=== PATIENT | male | born 1940 | race Hispanic/Latino ===

== ENCOUNTER 2021-07-20 21:30 | Inpatient (IN) | payer MEDICARE ==
[~2021-07-20] VITALS: Ht 180.3 cm; Wt 84.8 kg
[2021-07-20] MEDS ORDERED: ATROPINE 1MG SYG IVP ONE (22:12)
[2021-07-20 22:18] LABS: APPEARANCE,URINE Clear (CLEAR); BILIRUBIN,URINE Negative (NEGATIVE); COLOR,URINE Yellow (YELLOW); GLUCOSE, URINE (UA) >=1000 mg/dL (NEGATIVE); KETONES,URINE Negative (NEGATIVE); LEUKOCYTE ESTERASE ,URINE Negative (NEGATIVE); NITRATE,URINE Negative (NEGATIVE); OCCULT BLOOD,URINE Negative (NEGATIVE); PH,URINE 5.5 (5.0-8.0); PROTEIN,URINE Negative (NEGATIVE)
[2021-07-20] MEDS ORDERED: ENOXAPARIN SODIUM 1 MG/KG SQ SCH (22:30)
[2021-07-20] MEDS ORDERED: ATROPINE 1MG SYG IVP SCH (22:30)
[2021-07-20] MEDS ORDERED: ASPIRIN 325MG TAB PO ONE (22:30)
[2021-07-20] MEDS ORDERED: ONDANSETRON 4MG INJ IVP ONE (22:30)
[2021-07-20 22:33] LABS: BASOPHILS % (AUTO) 0.7 % (0.0-5.0); EOSINOPHILS % (AUTO) 1.5 % (0.0-8.0); HEMATOCRIT 38.7 % (42-54); LYMPHOCYTES % (AUTO) 23.3 % (21.0-51.0); MEAN CORPUSCULAR HEMOGLOBIN 33.2 pg (27.0-33.0); MEAN CORPUSCULAR HGB CONC 33.6 g/dL (32.0-36.0); MEAN CORPUSCULAR VOLUME 98.7 fL (79-99); NEUTROPHILS % (AUTO) 64.2 % (40.0-77.0); PLATELET COUNT (AUTO) 207 K/uL (130-400); RED BLOOD CELL COUNT(AUTO) 3.92 MIL/uL (4.50-6.20); RED CELL DISTRIBUTION WIDTH 13.4 % (11.0-15.5); WHITE BLOOD COUNT (AUTO) 8.6 K/uL (4.8-10.8)
[2021-07-20 22:44] LABS: CARBON DIOXIDE 29 mmol/L (21-32); CHLORIDE 102 mmol/L (101-111); CREATININE 1.9 mg/dL (0.5-1.5); GLOMERULAR FILTR. RATE CALC 36 mL/min (>60); GLUCOSE,RANDOM 203 mg/dL (70-105); POTASSIUM 4.2 mmol/L (3.5-5.1); SODIUM SERUM 141 mmol/L (136-145); UREA NITROGEN, BLOOD 31 mg/dL (7-18)
[2021-07-20 22:49] LABS: ALANINE AMINOTRANSFERASE 27 U/L (12-78); ALBUMIN 4.2 g/dL (3.5-5.0); ASPARTATE AMINOTRANSFERASE 15 U/L (10-37); BILIRUBIN,TOTAL 0.3 mg/dL (0.2-1.0); TOTAL PROTEIN, SERUM 7.1 g/dL (6.0-8.3)
[2021-07-20 22:50] LABS: CRP QUANTITATIVE < 2.00 mg/L (0.00-9.0)
[2021-07-20 22:55] LABS: BACTERIA,URINE None Seen /HPF (None Seen); RBC,URINE None Seen /HPF (0-1); SQUAMOUS EPITHELIAL CELL,UR Rare /HPF (0-2); WBC,URINE None Seen /HPF (0-1); YEAST,URINE BUDDING None Seen /HPF (None Seen)
[2021-07-20 22:55] LABS: B-TYPE NATRIURETIC PEPTIDE 175 pg/mL (0-100)
[2021-07-20] MEDS ORDERED: ONDANSETRON 4MG INJ ONE (23:04)
[2021-07-20] MEDS ORDERED: ASPIRIN 325MG TAB ONE (23:05)
[2021-07-20] MEDS ORDERED: 0.9%NACL 1000ML 1,000 ML IV SCH (23:30)
[2021-07-20] MEDS ORDERED: ONDANSETRON 4MG INJ IV PRN (23:30)
[2021-07-20] MEDS ORDERED: 0.9%NACL 1000ML 500 ML IV SCH (23:30)
[2021-07-20] MEDS ORDERED: ENOXAPARIN SODIUM 80 MG/0.8 ML SQ ONE (23:30)
[2021-07-20] MEDS ORDERED: HYDRALAZINE 20MG/ML VIAL IV PRN (23:30)
[2021-07-21 00:48] VITALS: BP 167/79
[2021-07-21] MEDS ORDERED: ENOXAPARIN SODIUM 40 MG/0.4 ML SYRINGE SQ SCH (09:00)
[2021-07-21] MEDS ORDERED: FAMOTIDINE 20MG TAB PO SCH (09:00)
[2021-08-14] MEDS ORDERED: EMPA25TA PO (11:53)
[2021-08-14] MEDS ORDERED: ASPI-1197 PO (11:53)
[2021-08-14] MEDS ORDERED: ATOR20TA65 PO (11:53)
[2021-08-14] MEDS ORDERED: PIOG15TA66 PO (11:53)
[2021-08-14] MEDS ORDERED: BRIM5DRO OP (11:53)
[2021-08-14] MEDS ORDERED: LOSA100T58 PO (11:53)
== END 2021-07-21 00:30 | disposition left against medical advice (07) | DRG 605 ==
LOC: EDH 21:30 → EDHIP 23:07
PROVIDERS: ADMIT Internal Medicine; ATTEND Internal Medicine
DX: S80.211A Abrasion, right knee, initial encounter (principal); I10 Essential (primary) hypertension; S80.212A Abrasion, left knee, initial encounter; E11.9 Type 2 diabetes mellitus without complications; E78.5 Hyperlipidemia, unspecified; R29.6 Repeated falls; Y93.89 Activity, other specified; Y92.89 Other specified places as the place of occurrence of the external cause; Y99.8 Other external cause status; Z98.49 Cataract extraction status, unspecified eye; Z85.46 Personal history of malignant neoplasm of prostate
CPT/HCPCS: 36415; 71045; 80053; 81001; 83880; 84484; 85025; 86140; 93005; G0378; J0461; J2405

== ENCOUNTER 2021-08-15 06:01 | Day surgery (SDC) | payer MEDICARE ==
[2021-08-10 16:16] LABS: EOSINOPHILS % (AUTO) 3.2 % (0.0-8.0); HEMATOCRIT 39.3 % (42-54); LYMPHOCYTES % (AUTO) 28.1 % (21.0-51.0); MEAN CORPUSCULAR HGB CONC 33.1 g/dL (32.0-36.0); MEAN CORPUSCULAR VOLUME 99.7 fL (79-99); NEUTROPHILS % (AUTO) 57.5 % (40.0-77.0); PLATELET COUNT (AUTO) 223 K/uL (130-400); RED BLOOD CELL COUNT(AUTO) 3.94 MIL/uL (4.50-6.20); RED CELL DISTRIBUTION WIDTH 12.7 % (11.0-15.5)
[2021-08-10 16:35] LABS: CREATININE 1.5 mg/dL (0.5-1.5)
[2021-08-10 16:38] LABS: INR 1.05 (0.85-1.15); PROTHROMBIN TIME 11.4 SEC (9.6-11.6)
[2021-08-10 16:39] LABS: PARTIAL THROMBOPLASTIN TIME 28.8 SEC (26.3-35.5)
[2021-08-14 10:28] VITALS: BP 198/69
[2021-08-15] VITALS (13 sets, daily range): BP systolic 103–170; BP diastolic 50–81
[~2021-08-15] VITALS: Ht 180.3 cm; Wt 83.5 kg
[~2021-08-15 06:01] MED LIST: ASPI-1197 PO; ATOR20TA65 PO; BRIM5DRO OP; EMPA25TA PO; LOSA100T58 PO; PIOG15TA66 PO
[2021-08-15] MEDS ORDERED: 0.9%NACL 1000ML 1,000 ML IV ONE (07:07)
[2021-08-15] MEDS ORDERED: CEFAZOLIN SODIUM 1 GM VIAL ONE ×2 (07:12→14:06)
[2021-08-15] MEDS ORDERED: BUPIVACAINE/PF 0.25% 30ML VIAL IJ ONE (07:12)
[2021-08-15] MEDS ORDERED: IOHEXOL-350 50ML VIAL IV ONE (07:13)
[2021-08-15] MEDS ORDERED: LIDOCAINE HCL 1% MDV 50ML VIAL ONE (07:14)
[2021-08-15] MEDS ORDERED: MEPERIDINE-PF 25 MG/ML SYG ONE ×2 (07:14→07:34)
[2021-08-15] MEDS ORDERED: MIDAZOLAM HCL 1 MG/ML 2ML VIAL ONE ×2 (07:14→07:34)
[2021-08-15] MEDS ORDERED: VITAD50000 PO (07:50)
== END 2021-08-15 16:20 | disposition home or self-care (01) ==
LOC: DAH 06:01
PROVIDERS: ATTEND Internal Medicine Cardiovascular Disease
DX: I49.5 Sick sinus syndrome (principal); Z20.822 Contact with and (suspected) exposure to COVID-19; I44.2 Atrioventricular block, complete; I10 Essential (primary) hypertension; E11.9 Type 2 diabetes mellitus without complications; I44.0 Atrioventricular block, first degree; I45.2 Bifascicular block; Z80.42 Family history of malignant neoplasm of prostate; Z85.46 Personal history of malignant neoplasm of prostate; Z92.3 Personal history of irradiation; Z79.899 Other long term (current) drug therapy; Z79.01 Long term (current) use of anticoagulants
CPT/HCPCS: 33208; 36415; 71045; 80048; 82948 ×2; 85025; 85610; 85730; 93005; A4215 ×2; A4216 ×2; A4221 ×2; A4222; A4223 ×4; A4606; A4663; C1785; C1894; C1898 ×2; J0690 ×2; J2175; J2250; J3490 ×2; J7030; 96365; 96366; 96374; 99156; 99157; Q9967

== ENCOUNTER → 2022-03-22 | Outpatient (CLI) | payer MEDICARE ==
[~2022-03-22] MED LIST changes: +VITAD50000 PO
== END | disposition home or self-care (01) ==
LOC: SHCH 08:17
PROVIDERS: ATTEND Internal Medicine Cardiovascular Disease
DX: I35.8 Other nonrheumatic aortic valve disorders (principal); R94.31 Abnormal electrocardiogram [ECG] [EKG]; R00.1 Bradycardia, unspecified; I10 Essential (primary) hypertension
CPT/HCPCS: 93306

== ENCOUNTER 2022-06-05 04:49 | Emergency (ER) | payer MEDICARE ==
[2022-06-05] MEDS ORDERED: ACETAMINOPHEN 325 MG SUPPOSITORY RC ONE (05:00)
[2022-06-05 05:30] LABS: CREATININE 1.5 mg/dL (0.5-1.5)
[2022-06-05] MEDS ORDERED: ACETAMINOPHEN 650 MG SUPPOSITORY RC ONE (05:30)
[2022-06-05 05:35] LABS: ALBUMIN 3.3 g/dL (3.5-5.0); TOTAL PROTEIN, SERUM 6.3 g/dL (6.0-8.3)
[2022-06-05 05:38] LABS: APPEARANCE,URINE CLEAR (CLEAR); BILIRUBIN,URINE NEGATIVE (NEGATIVE); COLOR,URINE YELLOW (YELLOW); GLUCOSE, URINE (UA) >=1000 mg/dL (NEGATIVE); KETONES,URINE NEGATIVE (NEGATIVE); LEUKOCYTE ESTERASE ,URINE TRACE (NEGATIVE); NITRATE,URINE POSITIVE (NEGATIVE); OCCULT BLOOD,URINE SMALL (NEGATIVE); PH,URINE 5.5 (5.0-8.0); PROTEIN,URINE NEGATIVE (NEGATIVE); UROBILINOGEN,URINE 0.2 mg/dL (0.2-1.0)
[2022-06-05 05:39] LABS: BASOPHILS % (AUTO) 0.4 % (0.0-5.0); EOSINOPHILS % (AUTO) 0.7 % (0.0-8.0); HEMATOCRIT 34.9 % (42-54); LYMPHOCYTES % (AUTO) 4.2 % (21.0-51.0); MEAN CORPUSCULAR HEMOGLOBIN 31.7 pg (27.0-33.0); MEAN CORPUSCULAR HGB CONC 33.5 g/dL (32.0-36.0); MEAN CORPUSCULAR VOLUME 94.6 fL (79-99); MONOCYTES % (AUTO) 4.6 % (3.0-13.0); NEUTROPHILS % (AUTO) 89.7 % (40.0-77.0); PLATELET COUNT (AUTO) 169 K/uL (130-400); RED BLOOD CELL COUNT(AUTO) 3.69 MIL/uL (4.50-6.20); RED CELL DISTRIBUTION WIDTH 13.2 % (11.0-15.5); WHITE BLOOD COUNT (AUTO) 7.4 K/uL (4.8-10.8)
[2022-06-05] MEDS ORDERED: CEFTRIAXONE 1G VIAL ONE (05:55)
[2022-06-05 05:58] LABS: BACTERIA,URINE Many /HPF (None Seen); RBC,URINE 0-1 /HPF (0-1); SQUAMOUS EPITHELIAL CELL,UR Rare /HPF (0-2)
[2022-06-05] MEDS ORDERED: CEFTRIAXONE 1G VIAL IVP ONE (06:00)
[2022-06-05] MEDS ORDERED: KCL 20 MEQ ERTAB PO ONE ×2 (06:21→06:30)
[2022-06-05 06:32] VITALS: BP 116/57
[2022-06-05] MEDS ORDERED: CEPH500B PO (06:50)
== END 2022-06-05 07:05 | disposition home or self-care (01) ==
LOC: EDH 04:49
DX: N39.0 Urinary tract infection, site not specified (principal); E87.6 Hypokalemia; E11.9 Type 2 diabetes mellitus without complications; I11.9 Hypertensive heart disease without heart failure; Z85.46 Personal history of malignant neoplasm of prostate; Z20.822 Contact with and (suspected) exposure to COVID-19
CPT/HCPCS: 99285; 96374; 71045; 87426; 84484; 80053; 85025; 87040 ×2; 87077; 87088; 87186; 87804 ×2; 83605; 81001; 36415; 93005; J0696

== ENCOUNTER → 2025-01-19 | Outpatient (CLI) | payer MEDICARE ==
[~2025-01-19] MED LIST changes: +CEPH500B PO; -LOSA100T58 PO; +LOSA100T59 PO
== END | disposition home or self-care (01) ==
LOC: SHCH 13:59
PROVIDERS: ATTEND Internal Medicine Cardiovascular Disease
DX: I08.3 Combined rheumatic disorders of mitral, aortic and tricuspid valves (principal); I11.9 Hypertensive heart disease without heart failure
CPT/HCPCS: 93306

== ENCOUNTER 2025-03-16 09:22 | Inpatient (IN) | payer MEDICARE ==
[~2025-03-16] VITALS: Ht 182.9 cm; Wt 82.2 kg
[2025-03-16] MEDS: 0.9%NACL 1000ML 1,000 ML IV ONE (09:35)
[2025-03-16 09:51] LABS: BASOPHILS # (AUTO) 0.05 K/uL (0.00-0.20); BASOPHILS % (AUTO) 0.6 % (0.0-5.0); EOSINOPHILS # (AUTO) 0.04 K/uL (0.00-0.70); EOSINOPHILS % (AUTO) 0.5 % (0.0-8.0); HEMATOCRIT 32.2 % (42-54); IMMATURE GRANULOCYTE ABSOLUTE 0.02 K/uL (0-1); LYMPHOCYTES # (AUTO) 0.7 K/uL (1.0-4.8); LYMPHOCYTES % (AUTO) 8.1 % (21.0-51.0); MEAN CORPUSCULAR HEMOGLOBIN 32.6 pg (27.0-33.0); MEAN CORPUSCULAR HGB CONC 32.9 g/dL (32.0-36.0); MEAN CORPUSCULAR VOLUME 99.1 fL (79-99); MONOCYTES # (AUTO) 0.9 K/uL (0.1-1.0); MONOCYTES % (AUTO) 10.5 % (3.0-13.0); NEUTROPHILS # (AUTO) 6.7 K/uL (1.8-7.7); NEUTROPHILS % (AUTO) 80.1 % (40.0-77.0); PLATELET COUNT (AUTO) 165 K/uL (130-400); RED BLOOD CELL COUNT(AUTO) 3.25 MIL/uL (4.50-6.20); RED CELL DISTRIBUTION WIDTH 14.3 % (11.0-15.5); WHITE BLOOD COUNT (AUTO) 8.3 K/uL (4.8-10.8)
--- NOTE | 2025-03-16 09:57 | EKG ---
[facility] Test Date: 2025-03-16 Test Time: 09:54:01 Pat Name: OBIE JON Department: [facility] Room: 422 Gender: M Infection Control Specialist: [id number] : [id number] Requested By: DANAE MACHADO Order Number: [id number] Reading MD: Maggi Grady Measurements Intervals [place] Rate: 68 P: 81 HI: 313 QRS: -69 QRSD: 176 T: 111 QT: 447 QTc: 476 Interpretive Statements A-V dual-paced complexes w/ some inhibition Compared to ECG 06/05/2022 05:18:36 Uncertain supraventricular rhythm no longer present Left-axis deviation no longer present Right bundle-branch block no longer present Left ventricular hypertrophy no longer present Early repolarization no longer present Myocardial infarct finding no longer present Electronically Signed On 03-18-2025 15:05:21 CDT by Maggi Grady Please click the below link to view image of tracing.
[2025-03-16 10:02] LABS: CREATININE 1.2 mg/dL (0.5-1.3)
--- NOTE | 2025-03-16 10:43 | HMCIMG ---
CT HEAD/BRAIN W/O CONTRAST HISTORY: Syncope COMPARISON: None TECHNIQUE: Multiple sequential axial images of the head were obtained from the base of the skull through vertex. Patient was not given contrast through intravenous route. FINDINGS: The ventricles and extraventricular CSF spaces are dilated consistent with cerebral atrophy. Nonspecific white matter changes seen. There is no midline shift, mass effect or herniation. No acute intracranial bleed is seen. Visualized portion of the paranasal sinuses are grossly within normal limits. IMPRESSION: 1. No acute intracranial bleed is seen. 2. Atrophy with white matter changes. CT was performed with one or more following dose reduction techniques: automated exposure control, adjustment of the mA and kv according to patient's size, or use of a iterative reconstruction technique.
--- NOTE | 2025-03-16 11:28 | ERN ---
General Chief Complaint: Syncope Stated Complaint: NEAR SYNCOPE Time Seen by MD: 09:23 History of Present Illness Initial Comments 84-year-old male, history of pacemaker, hypertension, diabetes, dyslipidemia, BPH, Alzheimer's, brought in by EMS from home for a near syncopal episode. According to family he was walking in the kitchen in his normal state of health, he appeared faint and almost had a fall. The family was able to prevent him from falling and had him sit down. He was not confused during the event but he looks like he was going to pass out. EMS found the patient in his normal state of health with blood pressure 130/62 and a blood glucose of 145. No obvious focal neurologic deficits. Patient currently denies any complaints, but does appear to have a bit of Alzheimer's and is an unreliable historian. Allergies: Coded Allergies: No Known Drug Allergies (Unverified Allergy, Unknown, 07/20/21) Home Meds Active Scripts Cephalexin Monohydrate (Keflex) 500 Mg Cap, 500 MG PO QID for 10 Days, #40 CAP Prov:JOE PINTO MD 06/05/22 Reported Medications Cholecalciferol (Vitamin D3) 50,000 Units Cap, 52088 UNITS PO AD, CAP 08/15/21 Brimonidine Tartrate/Timolol (Combigan Eye Drops) 5 Ml Drops, 5 ML OP BID, DROP 08/14/21 Atorvastatin Calcium (Atorvastatin Calcium) 20 Mg Tablet, 20 MG PO HS, TAB 08/14/21 Aspirin (Aspirin) 81 Mg Tab.chew, 81 MG PO AM, TAB.CHEW 08/14/21 Pioglitazone HCl (Pioglitazone HCl) 15 Mg Tablet, 15 MG PO AM, TAB 08/14/21 Losartan Potassium (Losartan Potassium) 100 Mg Tablet, 100 MG PO AM, TAB 08/14/21 Empagliflozin (Jardiance) 25 Mg Tablet, 25 MG PO AM, TAB 08/14/21 Past Medical History Past Medical History: Diabetes-Type II, High Cholesterol, Hypertension, Other Medical History Other: ENLARGED PROSTATE, HEARING IMPAIRED Past Surgical History: Pacer/AICD Surgical History Other: CATARACT SURGERY, PROSTATE CA SURGERY Family History Family History: Negative Social History Social History: Lives with family ROS Dictation CONSTITUTIONAL: No chills, no fever, no weakness, no diaphoresis, no malaise. HEAD/FACE: No signs of trauma. EENT: No eye pain, no blurred vision, no tearing, no double vision, no ear pain, no ear discharge, no nose pain, no nasal congestion, no throat pain, no throat swelling, no mouth pain. RESPIRATORY: No cough, no orthopnea, no SOB, no stridor, no wheezing. CARDIOVASCULAR: Syncope GASTROINTESTINAL/ABDOMINAL: No abdominal pain, no constipation, no diarrhea, no nausea, no vomiting. GENITOURINARY: No abnormal discharge, no dysuria, no frequent urination, no hematuria. No complaints of pain in the genitals. MUSCULOSKELETAL: No back pain, no gout, no joint pain, no joint swelling, no muscle pain, no muscle stiffness, no neck pain. INTEGUMENTARY: No change in color, no change in hair/nails, no dryness, no lesion, no lumps, no rash. NEUROLOGICAL/PSYCH: No anxiety, not depressed, no emotional problem, no headache, no numbness, no pre-existing deficit, no history of seizures, no tremors, no weakness. HEMATOLOGIC/LYMPHATIC: Not anemic, no history of blood clots, no apparent bleeding, no bruising, glands not swollen. All Systems Negative, Except as Noted. Physical Exam Physical Exam Dictation VITAL SIGNS: Reviewed. GENERAL APPEARANCE: Alert, oriented at baseline HEAD AND FACE: Non-traumatic. EYES: PERRL, pink conjunctivas, eyelid no trauma, anterior chamber clear. EARS: Pinnas intact and no signs of trauma or erythema. Ear canals clear and no discharge. TMs no erythema. NOSE: No discharge, no bleeding. OROPHARYNX: Mouth normal, teeth no caries, tongue pink. Pharynx clear, no erythema. Tonsils no exudates, no abscesses noted. Mucous membrane moist. NECK: Supple, non-tender, no thyromegaly, no masses, no JVD, no bruits. BREAST: Deferred. CHEST: No tenderness, no crepitus, no paradoxical movement, no retractions. LUNGS: Clear, well-ventilated, symmetric, no rales, no wheezing, no rhonchi, no stridor, good breath sounds bilaterally. HEART: Regular rate, regular rhythm, no murmur, no gallops. VASCULAR: No peripheral edema. ABDOMEN: Soft, positive bowel sounds, nondistended, no guarding, nontender, no rebound, no masses no hepatomegaly, no splenomegaly, no See's sign, no hernias. RECTAL: Deferred. GENITAL: Deferred. NEUROLOGICAL: Normal speech, gross motor function intact, gross sensory function intact. MUSCULOSKELETAL: Neck nontender, full range of motion, back nontender, full range of motion. EXTREMITIES: Nontender, full range of motion. SKIN: Color pink, dry, no turgor, no rash, no lacerations, no abrasions, no contusions. LYMPHATICS: Deferred. Results Laboratory and Microbiology Lab and Micro Result Laboratory Tests Test 03/16/25 09:46 White Blood Count 8.3 K/uL (4.8-10.8) Red Blood Count 3.25 MIL/uL (4.50-6.20) L Hemoglobin 10.6 g/dL (14.0-18.0) L Hematocrit 32.2 % (42-54) L Mean Corpuscular Volume 99.1 fL (79-99) H Mean Corpuscular Hemoglobin 32.6 pg (27.0-33.0) Mean Corpuscular Hemoglobin Concent 32.9 g/dL (32.0-36.0) Red Cell Distribution Width 14.3 % (11.0-15.5) Platelet Count 165 K/uL (130-400) Mean Platelet Volume 9.7 fL (7.5-10.5) Immature Granulocyte % (Auto) 0.2 % (0-1) Neutrophils (%) (Auto) 80.1 % (40.0-77.0) H Lymphocytes (%) (Auto) 8.1 % (21.0-51.0) L Monocytes (%) (Auto) 10.5 % (3.0-13.0) Eosinophils (%) (Auto) 0.5 % (0.0-8.0) Basophils (%) (Auto) 0.6 % (0.0-5.0) Neutrophils # (Auto) 6.7 K/uL (1.8-7.7) Lymphocytes # (Auto) 0.7 K/uL (1.0-4.8) L Monocytes # (Auto) 0.9 K/uL (0.1-1.0) Eosinophils # (Auto) 0.04 K/uL (0.00-0.70) Basophils # (Auto) 0.05 K/uL (0.00-0.20) Absolute Immature Granulocyte (auto 0.02 K/uL (0-1) Nucleated Red Blood Cells 0.0 % (0.0-0.19) White Cell Morphology Comment See comments Sodium Level 140 mmol/L (136-145) Potassium Level 4.0 mmol/L (3.5-5.1) Chloride Level 104 mmol/L (101-111) Carbon Dioxide Level 29 mmol/L (21-32) Blood Urea Nitrogen 21 mg/dL (7-18) H Creatinine 1.2 mg/dL (0.5-1.3) Glomerular Filtration Rate Calc 59 mL/min (>90) Random Glucose 167 mg/dL (70-105) H Total Calcium 8.8 mg/dL (8.5-10.1) Total Creatine Kinase 50 U/L (21-232) Troponin I High Sensitivity 10.8 ng/L (4-75) MDM CC: Syncopal episode Historian: EMS, patient does provide some history but has a Alzheimer's and appears to be an unreliable historian Limitations by social determinants of health: None Differential diagnosis: Arrhythmia, hypotension, benign syncope, ACS, head injury, other Vital signs: Stable Initial clinical exam is unremarkable. NIHSS of 0 Comorbidities: Advanced age, diabetes type 2, dyslipidemia, hypertension EKG (independently interpreted by me): Paced rhythm, rate 68, left axis deviation, Sgarbossa negative. Labs (independently ordered and interpreted by me. No leukocytosis. Macrocytic anemia hemoglobin at 10.6. Metabolic panel is unremarkable. CK and troponin are normal. External chart review: On 06/05/[address] head without contrast (independently interpreted by me): No acute abnormalities. Chronic changes. Chest x-ray (independently interpreted by me): No cardiomegaly no pleural effusions no focal infiltrates. Intact leads. Treatment in ED: 1 L normal saline Plan: Patient had a syncopal episode. He had risk based on his age and comorbidities. We will admit for observation and syncope workup. Patient agrees. Consultation: Hospitalist for admission. ED Course Orders Procedure Category Date Status Time Cbc With Differential LAB 03/16/25 Complete : Cardiac Panel LAB 03/16/25 Complete Urinalysis Profile LAB 03/16/25 Logged : Chest 1vw RAD 03/16/25 Taken 09:27 Ct Head/Brain W/O CT 03/16/25 Resulted Contrast 09:27 12 Lead Ekg Tracing- EKG 03/16/25 Complete Technical 09:27 0.9%Nacl 1000ml (Ns PHA 03/16/25 Complete 1000ml) 09:30 Basic Metabolic Panel LAB 03/16/25 Complete 09:27 Current Medications Medications (Trade) Dose Ordered Sig/Dorian Route PRN Reason Start Time Stop Time Status Last Admin Dose Admin Sodium Chloride 1,000 ml @ 0 mls/hr ONCE ONCE IV 03/16/25 09:30 03/16/25 09:31 DC 03/16/25 09:35 Vital Signs Date Time Temp Pulse Resp B/P (MAP) Pulse Ox O2 Delivery O2 Flow Rate FiO2 03/16/25 09:40 97.9 75 12 147/61 99 Room Air* 0 21 03/16/25 09:23 98.4 68 17 122/46 98 Room Air 0 DX & DISP Disposition: Inpatient Departure Impression: Primary Impression: Near syncope Additional Impressions: Macrocytic anemia, Dehydration Condition: Stable Referrals: ENOCH BUSTILLO MD (PCP) DANAE MACHADO DO Mar 16, 2025 11:27
--- NOTE | 2025-03-16 11:45 | NUR ---
REPORT GIVEN TO CAT ROB
--- NOTE | 2025-03-16 11:50 | HMCIMG ---
CHEST 1VW HISTORY: Syncope COMPARISON: 06/05/2022 FINDINGS: A frontal projection of the chest was obtained. No acute pulmonary infiltrates is seen. The heart is normal in size. Pacemaker is seen entering from the left. Degenerative changes are seen. No evidence of aortic calcification is seen. IMPRESSION: 1. No acute pulmonary infiltrate is seen.
--- NOTE | 2025-03-16 12:34 | NUR ---
INITIATED TRANSFER TO [facility], SPOKE TO [facility].
--- NOTE | 2025-03-16 12:46 | NUR ---
Sent urine sample to lab.
[2025-03-16 13:10] LABS: APPEARANCE,URINE CLOUDY (CLEAR); BILIRUBIN,URINE NEGATIVE (NEGATIVE); COLOR,URINE LIGHT-YELLOW (YELLOW); GLUCOSE, URINE (UA) 70 mg/dL (NEGATIVE); KETONES,URINE 5 mg/dL (NEGATIVE); LEUKOCYTE ESTERASE ,URINE 250 Leu/uL (NEGATIVE); NITRATE,URINE 2+ (NEGATIVE); OCCULT BLOOD,URINE NEGATIVE (NEGATIVE); PROTEIN,URINE 20 mg/dL (NEGATIVE); UROBILINOGEN,URINE 0.2 mg/dL (0.2-1.0)
[2025-03-16 13:12] LABS: ADD UA MICROSCOPIC YES
[2025-03-16 13:30] LABS: BACTERIA,URINE Many /HPF (None Seen); SQUAMOUS EPITHELIAL CELL,UR 0-2 /HPF (0-2)
[2025-03-16 13:33] LABS: RBC,URINE 0-1 /HPF (0-1)
[2025-03-16] MEDS: cefTRIAXone 2GM VIAL ONE (13:49)
[2025-03-16] MEDS: cefTRIAXone 1G VIAL IVPB ONE (13:49)
[2025-03-16] MEDS ORDERED: 0.9%NACL 50ML IV SCH (14:00)
[2025-03-16] MEDS ORDERED: hydrALAZine 20MG/ML VIAL IV PRN (14:00)
[2025-03-16] MEDS ORDERED: ZOSYN 3.375GM +NS 50ML IVPB SCH (14:00)
[2025-03-16] MEDS ORDERED: acetaMINOPHEN 500 MG TABLET PO PRN (14:00)
--- NOTE | 2025-03-16 14:05 | NUR ---
Tele neuro equipment in patients room. Waiting fot neuro evaluation.
--- NOTE | 2025-03-16 14:06 | NUR ---
Called Physical therapy team, spoke to Mr. Vergara and notify him of new PT evaluation. Mr. Vergara verbalized understanding.
--- NOTE | 2025-03-16 14:10 | NUR ---
Waiting on patients to give me list of home medication for me to review and physician to reconsile. Educated patients significant other on the importance of bringing home medication list. She verbalized understanding.
[2025-03-16 14:11] LABS: HEMOGLOBIN A1C 6.8 % (4.0-6.0)
--- NOTE | 2025-03-16 14:17 | HP ---
[facility] HISTORY AND PHYSICAL Date of Service: Mar 16, 2025 Time of Service: 14:08 HISTORY OF PRESENT ILLNESS: Date of service: 03/16/2025 84-year-old male with past medical history of hypertension, BPH, diabetes mellitus type 2, Alzheimer's disease, , history of pacemaker placement who presented to the hospital secondary to syncopal episode. Patient's history is obtained from patient's son and from patient's daughter was present at bedside. According to the family while patient was walking in the kitchen he was in normal state of health. He was thereafter noted to have episode where he was having upper extremity shaking episode. During the episodes patient was conscious but thereafter duaghter is not certain if he lost consciousness. Per daughter he had bowel incontinence and urinary incontinence. Denied any tongue bites, lower extremity shaking. Denied any previous history of seizures in the past. Denied any fever, chills, chest pain, abdominal pain, nausea, vomiting, dysuria, hematuria. Per son the patient had a very similar episode around 3-4 years ago. At that time he was diagnosed with urinary infection. Patient denied any falls, syncopal episode. Per patient's daughter patient was planning to have possibly his pacemaker lead changed in the future. Patient is followed by Dr. Carrillo as outpatient Labs were notable for white count of 8.3, hemoglobin was 10.6, MCV was 99.1, platelet count was 165 K, sodium was 140, potassium was 4.0, creatinine was 1.2, blood glucose was 167 Patient underwent a chest x-ray shows shows negative CT head was negative for any intracranial bleed REVIEW OF SYSTEMS CONSTITUTIONAL: Denies fevers, chills, or night sweats. No unintentional weight loss reported. NEUROLOGICAL: Denies headache, amaurosis fugax, motor weakness, sensory deficit, vertigo/spinning sensation, gait abnormalities, or tremors. Positive for syncope ENT: No hearing loss, otalgia, otorrhea, rhinitis, rhinorrhea, hoarseness, or sore throat. CARDIOVASCULAR: Denies any exertional angina, dyspnea on exertion, orthopnea, paroxysmal nocturnal dyspnea, palpitations, life-threatening arrhythmias, claudication. PULMONARY: Denies any shortness of breath, cough, phlegm/sputum, hemoptysis, pleuritic chest pain. GASTROINTESTINAL: Denies any type of dysphagia to either liquids or solids. Denies nausea, vomiting, pyrosis, early satiety, abdominal pain, diarrhea, constipation, or changes in stool consistency or caliber. Denies coffee-ground emesis, hematemesis, hematochezia, or melanotic stools. GENITOURINARY: Denies frequency, urgency, nocturia, hematuria or incontinence (Storage/Irritative symptoms.) Low urinary stream, straining to void, urinary intermittency or hesitancy, splitting of the voiding stream, terminal dribbling. ENDOCRINOLOGIC: Denies polyuria, polydipsia, polyphagia or heat/cold intolerances. HEMATOLOGIC: Denies thrombophilia/previous clots, or coagulopathy/bleeding disorders. ONCOLOGIC: Denies personal history of malignancy. DERMATOLOGIC: Denies rashes or pruritus. PSYCHIATRIC: Denies any suicidal or homicidal ideation. Denies hallucinations. PAST MEDICAL HISTORY: Diabetes mellitus type 2, hyperlipidemia, hypertension PAST SURGICAL HISTORY: History of cataract surgery, history of prostate cancer PAST SOCIAL HISTORY: Denied any smoking, alcohol, drug use FAMILY HISTORY: Denied any pertinent family history Coded Allergies: No Known Drug Allergies (Unverified Allergy, Unknown, 07/20/21) PHYSICAL EXAM GENERAL APPEARANCE: The patient is awake, alert, and oriented, in no acute cardiopulmonary distress. Patient is very hard of hearing NEUROLOGICAL: Cranial nerves II-XII grossly intact. Motor is 5/5 in bilateral upper and lower extremities proximal to distal. No sensory deficits. HEENT: Face is symmetric. Pupils are equal and reactive. Extraocular movements are intact. NECK: Supple. No JVD. No thyromegaly. No submental, submandibular, pre- /postauricular, occipital or supraclavicular lymphadenopathy. CHEST: Normal chest expansion. No Telemetry. LUNGS: Absence of any rales, rhonchi or any wheezing. CARDIOVASCULAR: Regular. S1 and S2 normal. No appreciable rubs, murmurs or gallops. ABDOMEN: Soft, nontender, and nondistended. There is no rebound, voluntary guarding, or rigidity. EXTREMITIES: Non-edematous and not cyanotic. No clubbing. Good capillary refill. SKIN: No skin breakdown. Vital Sign (Last 24 Hours) 03/16/25 12:00 Temp 98.2 Pulse 60 Resp 16 B/P (MAP) 165/62 Pulse Ox 100 O2 Delivery Room Air* O2 Flow Rate 0 FiO2 21 LABS: Laboratory: Test 03/16/25 12:45 03/16/25 09:46 Range/Units Urine Color LIGHT-YELLOW YELLOW Urine Appearance CLOUDY H CLEAR Urine pH 6.0 5.0-8.0 Urine Specific [place] 1.016 1.001-1.031 Urine Protein 20 H NEGATIVE mg/dL Urine Glucose (UA) 70 H NEGATIVE mg/dL Urine Ketones 5 H NEGATIVE mg/dL Urine Occult Blood NEGATIVE NEGATIVE Urine Nitrate 2+ H NEGATIVE Urine Bilirubin NEGATIVE NEGATIVE mg/dL Urine Urobilinogen 0.2 0.2-1.0 mg/dL Urine Leukocyte Esterase 250 H NEGATIVE Cecelia/uL Urine RBC 0-1 0-1 /HPF Urine WBC 11-25 H 0-1 /HPF Urine Squamous Epithelial Cells 0-2 0-2 /HPF Urine Non-Squamous Epithelial Cells 0-2 /HPF Urine Bacteria Many H None Seen /HPF White Blood Count 8.3 4.8-10.8 K/uL Red Blood Count 3.25 L 4.50-6.20 MIL/uL Hemoglobin 10.6 L 14.0-18.0 g/dL Hematocrit 32.2 L 42-54 % Mean Corpuscular Volume 99.1 H 79-99 fL Mean Corpuscular Hemoglobin 32.6 27.0-33.0 pg Mean Corpuscular Hemoglobin Concent 32.9 32.0-36.0 g/dL Red Cell Distribution Width 14.3 11.0-15.5 % Platelet Count 165 130-400 K/uL Mean Platelet Volume 9.7 7.5-10.5 fL Immature Granulocyte % (Auto) 0.2 0-1 % Neutrophils (%) (Auto) 80.1 H 40.0-77.0 % Lymphocytes (%) (Auto) 8.1 L 21.0-51.0 % Monocytes (%) (Auto) 10.5 3.0-13.0 % Eosinophils (%) (Auto) 0.5 0.0-8.0 % Basophils (%) (Auto) 0.6 0.0-5.0 % Neutrophils # (Auto) 6.7 1.8-7.7 K/uL Lymphocytes # (Auto) 0.7 L 1.0-4.8 K/uL Monocytes # (Auto) 0.9 0.1-1.0 K/uL Eosinophils # (Auto) 0.04 0.00-0.70 K/uL Basophils # (Auto) 0.05 0.00-0.20 K/uL Absolute Immature Granulocyte (auto 0.02 0-1 K/uL Nucleated Red Blood Cells 0.0 0.0-0.19 % White Cell Morphology Comment See comments Sodium Level 140 136-145 mmol/L Potassium Level 4.0 3.5-5.1 mmol/L Chloride Level 104 101-111 mmol/L Carbon Dioxide Level 29 21-32 mmol/L Blood Urea Nitrogen 21 H 7-18 mg/dL Creatinine 1.2 0.5-1.3 mg/dL Glomerular Filtration Rate Calc 59 >90 mL/min Random Glucose 167 H 70-105 mg/dL Total Calcium 8.8 8.5-10.1 mg/dL Total Creatine Kinase 50 21-232 U/L Troponin I High Sensitivity 10.8 4-75 ng/L Current Medications Medications (Trade) Dose Ordered Sig/Dorian Route PRN Reason Start Time Stop Time Status Last Admin Dose Admin Acetaminophen (TYLenol 500MG TAB) 500 mg Q6H PRN PO MILD PAIN (1-3) 03/16/25 14:00 04/15/25 13:59 Ceftriaxone Sodium (Rocephin 2gm Inj) 2 gm Q24H IVPB 03/17/25 14:00 03/27/25 13:59 Famotidine (Pepcid 20mg Vial) 20 mg HS IV 03/16/25 21:00 04/15/25 20:59 Hydralazine HCl (APRESOLine 20MG INJ) 10 mg Q6H PRN IV ADMINISTER FOR SBP > 180 03/16/25 14:00 04/15/25 13:59 Piperacillin Sod/ Tazobactam Sod (Zosyn 3.375gm+NS 50ml) 3.375 gm Q8H IVPB 03/16/25 14:00 03/16/25 13:56 DC Sodium Chloride 1,000 ml @ 75 mls/hr [id number] IV 03/16/25 14:00 04/15/25 13:59 Sodium Chloride (NS 50ml) 50 ml AD IV 03/16/25 14:00 04/15/25 13:59 DIAGNOSTICS / RADIOLOGY: [ ] ASSESSMENT: Suspected UTI POA Syncope POA likely in setting of UTI Possible seizure versus trigger secondary to UTI History of pacemaker placement Hypertension Hyperlipidemia Advanced age History of BPH PLAN: - patient to be admitted to medical-surgical unit with telemetry -in reference to syncope. Patient will be monitored on telemetry. Obtain echocardiogram. Obtain pacemaker interrogation. We will request Cardiology consultation. -in reference to possible seizure. The patient and family was informed regarding no in-house neurologist available. Family declined transferred to higher level of care. They are agreeable to staying in the hospital. We will obtain a tele neurology consultation to rule out seizure. Concern if patient had seizure versus rigors in setting of underlying UTI. -in reference to UTI. The patient will be started on Rocephin. -patient to be started on NS for gentle hydration. Obtain home medications which will be reconciled once available -TSH, A1c, procalcitonin, CRP -obtain PT evaluation -patient will be on fall precautions -further orders per hospitalization course. Advanced Care Planning Which of the following were discussed: Hospice care: Yes __ No _x_ Therapeutic options: Yes __ No __ Advance directives: Yes __ No __ Other discussions: Discussed with who?: Patient, son and daughter (Patient, family or surrogates) Voluntary nature of this service was explained to the patient? Yes _x_ No __ Amount of time spent: 25 minutes MAGGI Stewart MD, MD Mar 16, 2025 14:17
[2025-03-16 14:19] LABS: THYROID STIMULATING HORMONE 2.1 uIU/mL (0.36-3.74)
[2025-03-16] MEDS ORDERED: GLUCAGON 1MG KIT 1 MG ML IM PRN (14:30)
[2025-03-16] MEDS ORDERED: DEXTROSE 50%-WATER 50 ML DISP.SYRIN IV PRN (14:30)
[2025-03-16] MEDS: 0.9%NACL 1000ML 1,000 ML IV SCH (15:08)
[2025-03-16] MEDS: INSULIN humuLIN R 100 UNIT/ML 3ML SQ SCH (16:30)
--- NOTE | 2025-03-16 17:17 | NUR ---
Did pacemaker interrogation, waiting for report. Called ; waiting for a call back and the report to be faxed.
--- NOTE | 2025-03-16 17:28 | CONS ---
[facility] CARDIOLOGY CONSULTATION REPORT Date Patient Seen: Mar 16, 2025 Time of Visit: 17:03 Requesting Physician: Donavan Price MD Reason for Consultation: Syncope History of Present Illness: This is an 84-year-old Latin-Pakistani male with a past medical history of hypertension, sick sinus syndrome status post Biotronik Edora 8 DRT-T dual- chamber permanent pacemaker 08/15/2021, declining biventricular pacemaker upgrade for high percentage RV pacing, mild LV dysfunction with an LVEF of 40% by prior 2D echocardiogram 01/19/2025, right bundle branch block, left posterior fascicular block and history of prostate cancer status post prior radiation presented to the emergency department after he sustained a syncopal episode. The patient is history is unreliable and history is obtained from the son. According to his son, the patient had been in his usual state of health, was getting ready to go play golf when while in the kitchen, he developed shaking to his upper extremities as if he had a shaking chill. He then fell to the floor with brief loss of consciousness. He had both bowel and bladder incontinence. The patient does not report any symptoms of chest pain, dizziness, palpitations or other associated symptoms but has poor recollection. The patient has also had some altered mental status and according to his son, these are all symptoms including a prior syncopal episode in the setting of a urinary tract infection. In the ER, labs were remarkable for WBC of 8.3, hemoglobin 10.6, hematocrit of 32.2 and a platelet count of 165. Sodium 140, potassium 4.0, BUN 21 and creatinine of 1.2 with estimated GFR 59. Hemoglobin A1c of 6.8, CRP of 10.6, TSH of 2.1. Troponin normal at 10.8. Urinalysis was positive for 2+ nitrite and 250 leukocyte esterase and 11-25 WBCs with many bacteria. Past Medical History: Hypertension Sick sinus syndrome status post Biotronik Edora 8 DRT-T dual-chamber permanent pacemaker 08/15/2021 Mild LV dysfunction with an LVEF of 40% by prior 2D echocardiogram December/2023 Right bundle branch block and left posterior fascicular block Prostate cancer status post prior radiation therapy Past Surgical History: Prior prostate surgery Pacemaker insertion Family History: Noncontributory Social History: The patient is . Lives with spouse. He has been independent. Despite his advanced age, he still attempts to play golf and maintain an active lifestyle Habits: Non smoker. Denies alcohol consumption. Denies illicit drug use Home Meds: Pending reconciliation Review of Systems: CONST: Positive for chills, No fever, fatigue, or weight changes. EYES: No recent vision problems. ENT: No congestion, ear pain, or sore throat. C/V: No chest pain, palpitations, or edema. RESP: No cough, congestion, wheezing or shortness of breath. GI: No abdominal pain, nausea, vomiting, constipation, or diarrhea. : Positive for dysuria. SKIN: No rash. NEURO: No headache, focal numbness or weakness, dizziness, or seizures. PSYCH: No depression or anxiety. HEME: No abnormal bruising or bleeding. LYMPH: No swollen glands. Physical Examination: GENERAL: Elderly male, No acute distress. HEAD: Normal with no signs of head trauma. EYES: PERRLA, EOMI, conjunctiva and sclera normal. ENT: Hearing grossly intact, normal oropharynx. NECK: Supple without JVD. There is no tenderness, lymphadenopathy, or masses. No thyromegaly. Normal carotid upstrokes without bruits. LUNGS: Clear breath sounds bilaterally. No wheezes, or rhonchi. HEART: Normal rate and rhythm. Normal S1 and S2 without 2/6 early peaking systolic ejection murmur at the right upper sternal border. No gallop or rub. VASC: Peripheral pulses +2 bilaterally. ABD: Bowel sounds normal, soft, nontender, no masses, no organomegaly. No audible bruits. : Not examined LYMPH: No lymphadenopathy noted. EXT: No clubbing, cyanosis or edema. SKIN: No rashes or lesions noted. NEURO: Awake, alert, and oriented x2. No focal sensory or strength deficits noted. Vital Signs (last 8hr) Date Time Temp Pulse Resp B/P (MAP) Pulse Ox O2 Delivery O2 Flow Rate FiO2 03/16/25 12:00 98.2 60 16 165/62 100 Room Air* 0 21 03/16/25 11:00 97.9 62 12 170/72 98 Room Air* 0 03/16/25 09:40 97.9 75 12 147/61 99 Room Air* 0 03/16/25 09:23 98.4 68 17 122/46 98 Room Air 0 Laboratory: Hematology Labs: Test 03/16/25 09:46 Range/Units White Blood Count 8.3 4.8-10.8 K/uL Red Blood Count 3.25 L 4.50-6.20 MIL/uL Hemoglobin 10.6 L 14.0-18.0 g/dL Hematocrit 32.2 L 42-54 % Mean Corpuscular Volume 99.1 H 79-99 fL Mean Corpuscular Hemoglobin 32.6 27.0-33.0 pg Mean Corpuscular Hemoglobin Concent 32.9 32.0-36.0 g/dL Red Cell Distribution Width 14.3 11.0-15.5 % Platelet Count 165 130-400 K/uL Mean Platelet Volume 9.7 7.5-10.5 fL Immature Granulocyte % (Auto) 0.2 0-1 % Neutrophils (%) (Auto) 80.1 H 40.0-77.0 % Lymphocytes (%) (Auto) 8.1 L 21.0-51.0 % Monocytes (%) (Auto) 10.5 3.0-13.0 % Eosinophils (%) (Auto) 0.5 0.0-8.0 % Basophils (%) (Auto) 0.6 0.0-5.0 % Neutrophils # (Auto) 6.7 1.8-7.7 K/uL Lymphocytes # (Auto) 0.7 L 1.0-4.8 K/uL Monocytes # (Auto) 0.9 0.1-1.0 K/uL Eosinophils # (Auto) 0.04 0.00-0.70 K/uL Basophils # (Auto) 0.05 0.00-0.20 K/uL Absolute Immature Granulocyte (auto 0.02 0-1 K/uL Nucleated Red Blood Cells 0.0 0.0-0.19 % White Cell Morphology Comment See comments Chemistry Labs: Test 03/16/25 09:46 Range/Units Sodium Level 140 136-145 mmol/L Potassium Level 4.0 3.5-5.1 mmol/L Chloride Level 104 101-111 mmol/L Carbon Dioxide Level 29 21-32 mmol/L Blood Urea Nitrogen 21 H 7-18 mg/dL Creatinine 1.2 0.5-1.3 mg/dL Glomerular Filtration Rate Calc 59 >90 mL/min Random Glucose 167 H 70-105 mg/dL Hemoglobin A1c 6.8 H 4.0-6.0 % Estimated Average Glucose (eAG) 148 H 70-126 mg/dL Total Calcium 8.8 8.5-10.1 mg/dL Total Creatine Kinase 50 21-232 U/L Troponin I High Sensitivity 10.8 4-75 ng/L C-Reactive Protein, Quantitative 10.60 H 0.5-3.0 mg/L Procalcitonin 0.09 0.05-0.5 ng/mL Thyroid Stimulating Hormone (TSH) 2.10 0.36-3.74 uIU/mL Diagnostics / Radiology: CHEST 1VW 03/16/2025: HISTORY: Syncope COMPARISON: 06/05/2022 FINDINGS: A frontal projection of the chest was obtained. No acute pulmonary infiltrates is seen. The heart is normal in size. Pacemaker is seen entering from the left. Degenerative changes are seen. No evidence of aortic calcification is seen. IMPRESSION: 1. No acute pulmonary infiltrate is seen. 2D echocardiogram 01/19/2025: Conclusion The left ventricle is moderately dilated. LVEF is 40%. Grade 2 diastolic dysfunction. The right ventricle is normal size. The left atrium is mildly dilated. Aortic valve is trileaflet. The aortic valve is calcified and displays decreased opening. Trace aortic regurgitation. Calculated aortic valve area is 1.4 cm2 with maximum pressure gradient of 27.6 mmHg and mean pressure gradient of 16.2 mmHg. Mitral regurgitation is mild to moderate. There is no mitral valve stenosis. There is mild to moderate tricuspid regurgitation. Right ventricular systolic pressure is estimated at 40-50 mmHg. The aortic root is normal in size. IVC is dilated and collapses >50% with inspiration. No pericardial effusion. Impression and Plan: Urinary tract infection: -continue management with antibiotic therapy per primary team -obtain blood cultures as patient had a shaking chill again this afternoon Syncope, in the setting of urinary tract infection: -for completeness, we will obtain orthostatic vital signs to ensure no significant orthostatic hypotension -pacemaker interrogation in the ER today demonstrated 86% A paced and 98% RV pacing. There were no arrhythmias noted today. Battery longevity was 6 years. No evidence of pacemaker malfunction. Sick sinus syndrome status post prior Biotronik Edora 8 DRT-T dual-chamber permanent pacemaker 08/15/2021, declining biventricular pacemaker upgrade for high percentage RV pacing: -98% RV pacing noted on pacemaker interrogation 03/16/2025 -as above, the patient previously declined biventricular pacemaker upgrade and we will defer follow-up to Dr. Carrillo Comorbidities: Hypertension Mild LV dysfunction with an LVEF of 40% and grade 2 diastolic dysfunction by 2D echocardiogram 01/19/2025 Right bundle branch block and left anterior fascicular block PHYSICIAN ATTESTATION OF PHYSICIAN FORECLOSURE HOME INSPECTOR DOCUMENTATION: I attest that I was physically present for the stuart portions of the service and evaluated the patient with the Physician Keno Dealer, and I reviewed and discussed the case with the Physician Keno Dealer and made modifications to the Physician Keno Dealer's findings and plans of care as documented above KAMRON HERRERA Mar 16, 2025 17:28 SATYA DONAHUE MD Mar 16, 2025 19:04
--- NOTE | 2025-03-16 17:46 | NUR ---
orthostatic vital signs not done due to patient not following instuction and unstable gait.
--- NOTE | 2025-03-16 17:48 | NUR ---
Patient refused blood glucose to be checked and refused blood culture to be drawn. Family member (son) at bedside not cooperating with nursing staff.
--- NOTE | 2025-03-16 20:06 | CONS ---
CONSULT NOTE: [facility] Note # Demographics Consult Type: General Neurology Patient Location: Emergency Room First Name: OBIE Carreon Last Name: DONTRELL Date of : 1940 Age: 84 Gender: Male Facility: [facility] Time of Initial Page (Central Time): 03/16/2025 14:07 Time of Return Call (Central Time): 03/16/2025 14:07 # HPI History: 84yom with HTN, sick sinus syndrome, pacemaker placement who p/w concern for first time seizure. states he went unresponsive and then had some involuntary movement of his upper extremities and concerning for seizure. No similar events. Currently has UTI. # Scores Time of exam and NIHSS (Central Time): 03/16/2025 15:31 Level of Consciousness 1a: [0] = Alert; keenly responsive LOC Questions 1b: [2] = Answers neither correctly LOC Commands 1c: [0] = Performs both tasks correctly Best Gaze 2: [0] = Normal Visual 3: [0] = No visual loss Facial Palsy 4: [0] = Normal symmetrical movements Motor Arm Left 5a: [0] = No drift Motor Arm Right 5b: [0] = No drift Motor Leg Left 6a: [0] = No drift Motor Leg Right 6b: [0] = No drift Limb Ataxia 7: [0] = Absent Sensory 8: [0] = Normal Best Language 9: [0] = No aphasia Dysarthria 10: [1] = [id number] dysarthria Extinction and Inattention 11: [0] = No abnormality NIHSS Total: 3 # Data Head CT: - no bleed - per radiologist read # Assessment Impression: Possible first time event provoked by UTI, would not recommend AEDs at this time unless any abnormalities in following workup # Plan Labs: Full infectious and metabolic workup for AMS Imaging: (urgency: routine): - MRI Brain with AND without contrast Diagnostic Test: - EEG Other: - If patient has any neurological deterioration please call me back immediately # Demographics First Name: OBIE Carreon Last Name: DONTRELL Facility: [facility] JOSE MAIN MD Mar 16, 2025 20:06
[2025-03-16] MEDS: FAMOTIDINE 20MG VIAL IV SCH (20:54)
[2025-03-16 21:10] VITALS: BP 150/55; PULSE 68; RESP 20; TEMP 98.7
[2025-03-16] MEDS ORDERED: PIOG30TA70 PO (23:24)
[2025-03-16] MEDS ORDERED: DONE10TA43 PO (23:24)
[2025-03-16] MEDS ORDERED: METF-446 PO (23:24)
[2025-03-16] MEDS ORDERED: TAMS-55 PO (23:24)
[2025-03-16] MEDS ORDERED: FERR325T29 PO (23:24)
[2025-03-16] MEDS ORDERED: ERGO500093 PO (23:24)
[2025-03-16] MEDS ORDERED: ASPI-1443 PO (23:24)
[2025-03-16 23:59] VITALS: BP 153/66; PULSE 60; RESP 16; TEMP 98.8
[2025-03-17] VITALS (9 sets, daily range): BP systolic 90–157; BP diastolic 47–74; PULSE 64–83; RESP 16–20; TEMP 97.8–99; O2SAT 96
[2025-03-17] MEDS: DiphenhydrAMINE HCL 50 MG/ML VIAL IV ONE (03:37)
[2025-03-17 06:42] LABS: BASOPHILS # (AUTO) 0.03 K/uL (0.00-0.20); BASOPHILS % (AUTO) 0.6 % (0.0-5.0); EOSINOPHILS # (AUTO) 0.05 K/uL (0.00-0.70); HEMATOCRIT 29.9 % (42-54); IMMATURE GRANULOCYTE ABSOLUTE 0.02 K/uL (0-1); LYMPHOCYTES # (AUTO) 0.8 K/uL (1.0-4.8); LYMPHOCYTES % (AUTO) 14.8 % (21.0-51.0); MEAN CORPUSCULAR HEMOGLOBIN 32.4 pg (27.0-33.0); MEAN CORPUSCULAR HGB CONC 33.8 g/dL (32.0-36.0); MEAN CORPUSCULAR VOLUME 95.8 fL (79-99); MONOCYTES # (AUTO) 0.6 K/uL (0.1-1.0); MONOCYTES % (AUTO) 11.3 % (3.0-13.0); NEUTROPHILS # (AUTO) 3.7 K/uL (1.8-7.7); NEUTROPHILS % (AUTO) 71.9 % (40.0-77.0); PLATELET COUNT (AUTO) 150 K/uL (130-400); RED BLOOD CELL COUNT(AUTO) 3.12 MIL/uL (4.50-6.20); RED CELL DISTRIBUTION WIDTH 14.5 % (11.0-15.5); WHITE BLOOD COUNT (AUTO) 5.2 K/uL (4.8-10.8)
[2025-03-17 06:51] LABS: POTASSIUM 3.5 mmol/L (3.5-5.1)
[2025-03-17] MEDS ORDERED: LOSA100T59 PO (10:16)
[2025-03-17] MEDS: ASPIRIN 81 MG EC TAB PO SCH (10:22)
--- NOTE | 2025-03-17 10:35 | PN ---
[facility] PROGRESS NOTE Date of Service: Mar 17, 2025 Time of Service: 10:31 SUBJECTIVE: 84-year-old male with past medical history of hypertension, BPH, diabetes mellitus type 2, Alzheimer's disease, , history of pacemaker placement who presented to the hospital March 16, 2025 secondary to syncopal episode. Patient's history obtained from patient's son and from patient's daughter p resent at bedside. According to the family while patient was walking in the kitchen he was in normal state of health. He was thereafter noted to have episode where he was having upper extremity shaking episode. During the episodes patient was conscious but thereafter daughter not certain if he lost consciousness. Per daughter he had bowel incontinence and urinary incontinence. Denied any tongue bites, lower extremity shaking. Denied any previous history of seizures in the past. Denied any fever, chills, chest pain, abdominal pain, nausea, vomiting, dysuria, hematuria. Per son the patient had a very similar episode around 3-4 years ago. At that time he was diagnosed with urinary infection. Per patient's daughter patient was planning to have possibly his pacemaker lead changed in the future. Patient is followed by Dr. Carrillo as outpatient Labs were notable for white count of 8.3, hemoglobin was 10.6, MCV was 99.1, platelet count was 165 K, sodium was 140, potassium was 4.0, creatinine was 1.2, blood glucose was 167 UA done in the ER, cloudy appearance, 2+ nitrite, 250 leukocyte esterase, 11-25 WBC per high-power field Patient underwent a chest x-ray no acute pulmonary infiltrate. CT head was negative for any intracranial bleed 03/17 patient admitted to the medical floor, BP 90/47, afebrile, saturating normal on room air, hemoglobin 10.1, hematocrit 29.9, WBC 5.2, platelet count of 150, potassium 3.5. TSH 2.1. Results of urine culture greater than [id number] CFU, identification and susceptibility pending. Patient on Rocephin 2 g IV daily. Home medications reviewed and reconciled, we will order stool occult blood, iron level panel, if stool occult blood positive we will request GI consultation. Patient will be monitored on telemetry. Request echocardiogram. Request pacemaker interrogation. Request Cardiology consultation. In reference to possible seizure. The patient and family was informed regarding no in-house neurologist available. Family declined transferred to higher level of care. They are agreeable to staying in the hospital. We will obtain a tele neurology consultation to rule out seizure. Concern if patient had seizure versus rigors in setting of underlying UTI. PT consulted, follow input and recommendation. During my visit the patient is resting comfortably in bed, not agitated, not combative, still confused. at bedside, updated, all questions answered. Advanced directive discussed, patient is DNR/DNI. We will also add multivitamin IV at 50 mL/hours, total of 1 L. REVIEW OF SYSTEMS CONSTITUTIONAL: Denies fevers, chills, or night sweats. No unintentional weight loss reported. NEUROLOGICAL: Denies headache, amaurosis fugax, motor weakness, sensory deficit, vertigo/spinning sensation, gait abnormalities, or tremors. Positive for syncope ENT: No hearing loss, otalgia, otorrhea, rhinitis, rhinorrhea, hoarseness, or sore throat. CARDIOVASCULAR: Denies any exertional angina, dyspnea on exertion, orthopnea, paroxysmal nocturnal dyspnea, palpitations, life-threatening arrhythmias, claudication. PULMONARY: Denies any shortness of breath, cough, phlegm/sputum, hemoptysis, pleuritic chest pain. GASTROINTESTINAL: Denies any type of dysphagia to either liquids or solids. Denies nausea, vomiting, pyrosis, early satiety, abdominal pain, diarrhea, constipation, or changes in stool consistency or caliber. Denies coffee-ground emesis, hematemesis, hematochezia, or melanotic stools. GENITOURINARY: Denies frequency, urgency, nocturia, hematuria or incontinence (Storage/Irritative symptoms.) Low urinary stream, straining to void, urinary intermittency or hesitancy, splitting of the voiding stream, terminal dribbling. ENDOCRINOLOGIC: Denies polyuria, polydipsia, polyphagia or heat/cold intolerances. HEMATOLOGIC: Denies thrombophilia/previous clots, or coagulopathy/bleeding disorders. ONCOLOGIC: Denies personal history of malignancy. DERMATOLOGIC: Denies rashes or pruritus. PSYCHIATRIC: Denies any suicidal or homicidal ideation. Denies hallucinations. PHYSICAL EXAM GENERAL APPEARANCE: Resting comfortably in bed, not agitated, not combative, still confused (dementia) Patient is very hard of hearing NEUROLOGICAL: Cranial nerves II-XII grossly intact. Motor is 5/5 in bilateral upper and lower extremities proximal to distal. No sensory deficits. HEENT: Face is symmetric. Pupils are equal and reactive. Extraocular movements are intact. NECK: Supple. No JVD. No thyromegaly. No submental, submandibular, pre- /postauricular, occipital or supraclavicular lymphadenopathy. CHEST: Normal chest expansion. No Telemetry. LUNGS: Absence of any rales, rhonchi or any wheezing. CARDIOVASCULAR: Regular. S1 and S2 normal. No appreciable rubs, murmurs or gallops. ABDOMEN: Soft, nontender, and nondistended. There is no rebound, voluntary guarding, or rigidity. EXTREMITIES: Non-edematous and not cyanotic. No clubbing. Good capillary refill. SKIN: No skin breakdown. Vital Signs (last 8hr) Date Time Temp Pulse Resp B/P (MAP) Pulse Ox O2 Delivery O2 Flow Rate FiO2 03/17/25 10:12 72 119/62 99 03/17/25 10:12 80 90/47 97 03/17/25 10:11 64 96/51 98 03/17/25 08:00 99.0 73 18 139/68 96 Room Air 03/17/25 03:38 98.6 72 16 157/74 98 Room Air LABS: Laboratory: Test 03/17/25 06:36 03/17/25 05:11 03/16/25 12:45 03/16/25 09:46 Range/Units White Blood Count 5.2 # 4.8-10.8 K/uL Red Blood Count 3.12 L 4.50-6.20 MIL/uL Hemoglobin 10.1 L 14.0-18.0 g/dL Hematocrit 29.9 L 42-54 % Mean Corpuscular Volume 95.8 79-99 fL Mean Corpuscular Hemoglobin 32.4 27.0-33.0 pg Mean Corpuscular Hemoglobin Concent 33.8 32.0-36.0 g/dL Red Cell Distribution Width 14.5 11.0-15.5 % Platelet Count 150 130-400 K/uL Mean Platelet Volume 10.1 7.5-10.5 fL Immature Granulocyte % (Auto) 0.4 0-1 % Neutrophils (%) (Auto) 71.9 40.0-77.0 % Lymphocytes (%) (Auto) 14.8 L 21.0-51.0 % Monocytes (%) (Auto) 11.3 3.0-13.0 % Eosinophils (%) (Auto) 1.0 0.0-8.0 % Basophils (%) (Auto) 0.6 0.0-5.0 % Neutrophils # (Auto) 3.7 1.8-7.7 K/uL Lymphocytes # (Auto) 0.8 L 1.0-4.8 K/uL Monocytes # (Auto) 0.6 0.1-1.0 K/uL Eosinophils # (Auto) 0.05 0.00-0.70 K/uL Basophils # (Auto) 0.03 0.00-0.20 K/uL Absolute Immature Granulocyte (auto 0.02 0-1 K/uL Nucleated Red Blood Cells 0.0 0.0-0.19 % Sodium Level 138 136-145 mmol/L Potassium Level 3.5 3.5-5.1 mmol/L Chloride Level 106 101-111 mmol/L Carbon Dioxide Level 26 21-32 mmol/L Blood Urea Nitrogen 16 7-18 mg/dL Creatinine 1.0 0.5-1.3 mg/dL Glomerular Filtration Rate Calc 73 >90 mL/min Random Glucose 123 H 70-105 mg/dL Total Calcium 8.7 8.5-10.1 mg/dL Whole Blood Glucose 120 H 70-110 MG/DL Urine Color LIGHT-YELLOW YELLOW Urine Appearance CLOUDY H CLEAR Urine pH 6.0 5.0-8.0 Urine Specific Hiram 1.016 1.001-1.031 Urine Protein 20 H NEGATIVE mg/dL Urine Glucose (UA) 70 H NEGATIVE mg/dL Urine Ketones 5 H NEGATIVE mg/dL Urine Occult Blood NEGATIVE NEGATIVE Urine Nitrate 2+ H NEGATIVE Urine Bilirubin NEGATIVE NEGATIVE mg/dL Urine Urobilinogen 0.2 0.2-1.0 mg/dL Urine Leukocyte Esterase 250 H NEGATIVE Cecelia/uL Urine RBC 0-1 0-1 /HPF Urine WBC 11-25 H 0-1 /HPF Urine Squamous Epithelial Cells 0-2 0-2 /HPF Urine Non-Squamous Epithelial Cells 0-2 /HPF Urine Bacteria Many H None Seen /HPF White Cell Morphology Comment See comments Hemoglobin A1c 6.8 H 4.0-6.0 % Estimated Average Glucose (eAG) 148 H 70-126 mg/dL Total Creatine Kinase 50 21-232 U/L Troponin I High Sensitivity 10.8 4-75 ng/L C-Reactive Protein, Quantitative 10.60 H 0.5-3.0 mg/L Procalcitonin 0.09 0.05-0.5 ng/mL Thyroid Stimulating Hormone (TSH) 2.10 0.36-3.74 uIU/mL Current Medications Medications (Trade) Dose Ordered Sig/Dorian Route PRN Reason Start Time Stop Time Status Last Admin Dose Admin Acetaminophen (TYLenol 500MG TAB) 500 mg Q6H PRN PO MILD PAIN (1-3) 03/16/25 14:00 04/15/25 13:59 Aspirin (Aspirin 81mg Ec Tab) 81 mg DAILY PO 03/17/25 09:00 04/16/25 08:59 03/17/25 10:22 81 MG Ceftriaxone Sodium (Rocephin 2gm Inj) 2 gm Q24H IVPB 03/17/25 14:00 03/27/25 13:59 Dextrose (D50w) 50 ml AD PRN IV HYPOGLYCEMIA PROTOCOL 03/16/25 14:30 04/15/25 14:29 Donepezil HCl (ARIcept 5MG TAB) 10 mg HS PO 03/17/25 21:00 04/16/25 20:59 Famotidine (Pepcid 20mg Vial) 20 mg HS IV 03/16/25 21:00 04/15/25 20:59 03/16/25 20:54 20 MG Glucagon (Glucagon 1mg Kit) 1 mg AD PRN IM HYPOGLYCEMIA PROTOCOL 03/16/25 14:30 04/15/25 14:29 Hydralazine HCl (APRESOLine 20MG INJ) 10 mg Q6H PRN IV ADMINISTER FOR SBP > 180 03/16/25 14:00 04/15/25 13:59 Insulin Human Regular (humuLIN R 100 UNIT/ML 3ML) INSULIN SLIDING SCAL... ACHS SQ 03/16/25 16:30 04/15/25 16:29 Piperacillin Sod/ Tazobactam Sod (Zosyn 3.375gm+NS 50ml) 3.375 gm Q8H IVPB 03/16/25 14:00 03/16/25 13:56 DC Sodium Chloride 1,000 ml @ 75 mls/hr [id number] IV 03/16/25 14:00 04/15/25 13:59 03/17/25 03:25 75 MLS/HR Sodium Chloride (NS 50ml) 50 ml AD IV 03/16/25 14:00 03/16/25 15:34 DC Tamsulosin HCl (FloMAX) 0.4 mg NOON PO 03/17/25 12:00 04/16/25 11:59 DIAGNOSTICS / RADIOLOGY: [ ] ASSESSMENT: Suspected UTI POA Syncope POA likely in setting of UTI Possible seizure versus trigger secondary to UTI History of pacemaker placement Hypertension Hyperlipidemia Advanced age History of BPH PLAN: patient admitted to the medical floor, BP 90/47, afebrile, saturating normal on room air, hemoglobin 10.1, hematocrit 29.9, WBC 5.2, platelet count of 150, potassium 3.5. TSH 2.1. Results of urine culture greater than [id number] CFU, identification and susceptibility pending. Patient on Rocephin 2 g IV daily. Home medications reviewed and reconciled, we will order stool occult blood, iron level panel, if stool occult blood positive we will request GI consultation. Patient will be monitored on telemetry. Request echocardiogram. Request pacemaker interrogation. Request Cardiology consultation. In reference to possible seizure. The patient and family was informed regarding no in-house neurologist available. Family declined transferred to higher level of care. They are agreeable to staying in the hospital. We will obtain a tele neurology consultation to rule out seizure. Concern if patient had seizure versus rigors in setting of underlying UTI. PT consulted, follow input and recommendation NEURO: Minimize central acting medications as possible. Fall Precautions. Well lighted room through the day and minimize interruptions through the night to prevent acute delirium. PULMONARY: Supplemental 02 as needed BiPAP as necessary, for respiratory distress Titrate Fio2 to keep Spo2 > or = 90% DuoNebs and CPT as needed IS hourly while awake for pulmonary hygiene prn Out of bed to chair as tolerated Maintain aspiration precautions at all times CARDIOVASCULAR: Follow hemodynamics. Vital signs per facility protocol GI & NUTRITION: Continue nutritional support Aspirations precautions Prokinetic agents and laxatives as needed KIDNEYS & ELECTROLYTES: Strict monitoring of intake and output Daily weights Avoid nephrotoxic agents Monitor electrolytes and replace as needed Goal urine output of 30mL/hr or 0.5mL/kg/hr Medications to be dosed according to renal function. Avoid contrast if possible ENDOCRINE: Maintain blood glucose between 100-180 at all times. Insulin sliding scale for blood glucose management Hypoglycemia and hyperglycemia protocol in place INFECTIOUS DISEASE: Trend temperature, WBC and procalcitonin level Follow cultures, deescalate antibiotics as soon as possible. Panculture if new onset fever HEMATOLOGY & COAGULATION: Monitor H&H. Keep Hgb > 7 Transfuse 1 unit of PRBC for Hgb < 7 Transfuse 1 pack of platelets of platelets < 20, 000 Watch for any signs and symptoms of bleeding SKIN: Pressure ulcer prevention per facility protocol Specialty mattress as needed ORTHO/REHAB Continue PT/OT PRN: MEDICATIONS Tylenol 650 mg po every 4 hrs for fever zofran 4 mg IV every 6 hrs for n/v Hydralazine 5 mg IV every 4 hrs systolic pressure > 160 bowel regiment: lactulose 20 gm PO BID PRN constipation Supportive measures: Continue GI and DVT prophylaxis Disposition: Pending improvement in clinical condition All questions answered time spent: > 35 min ANA MIKE MD Mar 17, 2025 10:35
[2025-03-17 11:07] LABS: % IRON SATURATION 6.4 % (30-44)
--- NOTE | 2025-03-17 11:21 | PN ---
PROBLEM LIST: * Conduction system disease, status post remote dual chamber permanent pacemaker implant with a [employer] Edora device in 07/2021. * Hypertension. 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 * Prostate CA, status post radiation therapy. * High percentage RV pacing with EF of 40% by echocardiography in 12/2023, patient declining biventricular dual chamber pacemaker upgrade or a left bundle branch area pacing. * Mild aortic valve stenosis by echocardiography with moderate tricuspid regurgitation and moderate pulmonary hypertension and a dilated IVC. * Urinary tract infection. * History of dementia. * Frail octogenarian. DESCRIPTION OF PROCEDURE: This patient has been hospitalized presumably because of syncope. I, however, interrogated the patient's who stated that the patient never had any syncope. He just simply became somewhat confused and she helped him sit down to try and avoid him falling, but he did not fall and he did not have any syncope. She stated that he was awake and alert throughout the whole episode. The patient was noted to have a UTI on this evaluation and has been currently treated. His antihypertensive agents have been held. The patient has some confusion and dementia, which appears to be worse in the hospital. He is currently not having any active complaints and specifically denies any chest pain or shortness of breath. He has had no other problems. Over the last 24 hours, the patient's vital signs have been stable with heart rate in the 70s. He is afebrile and respiratory rate 16 to 20. His blood pressure has been in 150 to 160 systolic range and his saturating at 98% on room air. The patient's exam reveals soft systolic murmur; however, the heart sounds are somewhat distant. He has adequate entry in both lungs. The patient has no pedal edema. Laboratory studies revealed a sodium of 138, potassium 3.5, chloride 106, CO2 is 26, BUN 16, creatinine is 1.0 with a GFR of 73, and the random glucose is 123. The patient's calcium is 8.7. The C-reactive protein was high at 10.6 and the TSH was normal at 2.9 with a procalcitonin of 0.09. The white count was 5.2. The patient has mild anemia with an H and H of 10.1 and 29.9 respectively. Platelet count is 150,000. At this point, I have recommended that we proceed with postural blood pressure measurements. The patient had an echocardiogram in 12/2024, which identified an EF of 40% with grade 2 diastolic dysfunction and a mild degree of aortic valve stenosis with mild to moderate mitral insufficiency and mild to moderate tricuspid insufficiency with right ventricular systolic pressure of 40 to 50 mmHg. We have had multiple discussions with the patient and the family in the past in regard to the option of an upgrade of his pacemaker; however, he had been reluctant to have that done and the patient and the family are still reluctant to have any of that done. It is not clear as to whether or not the patient had any TIA event or some confusion due to his underlying dementia; however, tele-neurology was consulted and they felt that the event is probably provoked by UTI and did not recommend any additional studies for the time being. The patient had a head CT scan, which was remarkable for no acute intracranial bleed. There was evidence of atrophy with white matter changes. His chest x-ray has revealed no acute pulmonary disease. The patient had a pacemaker. At this point, I have had a detailed discussion with the patient and the . They have continued to request conservative management. I think it would be prudent to proceed with postural blood pressure measurements and if the patient is stable, we can reinitiate losartan at half the dose and observe his pressure status. TID: [id number] RECEIPT: [id number]
--- NOTE | 2025-03-17 13:12 | NUR ---
DCP: HOME Pt currently lives with Brianna Devries [phone] who was at bedside. pt does not have any insecurities with food, fpc, and/or utilities. Pt does not have DME, home health, or provider services. Pt is able to complete ADLs independently. PCP is Luis M Marcus and uses [facility] for any RX needs. At DC pt will return home and family can assist with transportation. Addendum: 03/17/25 at 1314 by GRAHAM COLLINS SS Amended: Links added.
[2025-03-17] MEDS: cefTRIAXone 2GM VIAL IVPB SCH (14:25)
[2025-03-17] MEDS: tamSULOsin HCL 0.4 MG CAP.ER.24H PO SCH (14:25)
[2025-03-17] MEDS: M.V.I. IV [ADULT] 10 ML, FOLic ACID 5 MG/ML VIAL 1 MG, THIAMINE HCL 100 MG in 0.9%NACL ... IV ONE (15:48)
[2025-03-17] MEDS: doNEPEZil HCL 5 MG TAB PO SCH (21:14)
[2025-03-18] VITALS (9 sets, daily range): BP systolic 121–180; BP diastolic 60–90; PULSE 60–77; RESP 16–20; TEMP 97.8–98.4; O2SAT 99
[2025-03-18 04:51] LABS: HEMATOCRIT 29.2 % (42-54); MEAN CORPUSCULAR HEMOGLOBIN 33.2 pg (27.0-33.0); MEAN CORPUSCULAR HGB CONC 34.6 g/dL (32.0-36.0); MEAN CORPUSCULAR VOLUME 96.1 fL (79-99); RED BLOOD CELL COUNT(AUTO) 3.04 MIL/uL (4.50-6.20); RED CELL DISTRIBUTION WIDTH 14.2 % (11.0-15.5); WHITE BLOOD COUNT (AUTO) 6.2 K/uL (4.8-10.8)
[2025-03-18 05:05] LABS: ALBUMIN 2.9 g/dL (3.5-5.0); BILIRUBIN,TOTAL 0.5 mg/dL (0.2-1.0); MAGNESIUM 1.5 mg/dL (1.80-2.40); TOTAL PROTEIN, SERUM 5.9 g/dL (6.0-8.3)
[2025-03-18] MEDS: PoTASSium chl 10% ELIXIR 20MEQ 20 MEQ/15 ML UDCUP PO PRN (05:36)
[2025-03-18] MEDS: MAGNESIUM 2GM PREMIX 50ML 50 ML IV PRN (05:49)
[2025-03-18] MEDS: FERROUS SULFATE 325 MG TABLET.DR PO SCH (09:07)
[2025-03-18] MEDS: PoTASSium chloRIDE 20MEQ ER 20 MEQ ERTAB PO PRN (09:08)
--- NOTE | 2025-03-18 09:43 | PN ---
[facility] CARDIOLOGY PROGRESS NOTE Date Patient Seen: Mar 18, 2025 Time of Visit: 09:33 Interval History: This 84-year-old Latin-U[place]and[place] male with a history of dementia, frailty, prostate CA status post radiation therapy, essential hypertension, conduction s ystem disease status post remote dual-chamber permanent pacemaker insertion ([employer] Edora device 07/2021), and mild aortic stenosis by prior 2D echocardiogram presented with generalized weakness and confusion and was found to have an E coli urinary tract infection on admission. Blood cultures at 12:00 p.m. are no growth thus far. He underwent interrogation of his pacemaker from the [employer] representative demonstrating normal pacemaker function. He has had no further fever, white blood count is improving, and orthostatic vital signs this morning demonstrated no significant drop (137/70 supine and 121/60 standing). He is comfortable and family members or anxious to have him discharged home today. Physical Examination: GENERAL: No acute distress. HEAD: Normal with no signs of head trauma. EYES: PERRLA, EOMI, conjunctiva and sclera normal. NECK: Supple without JVD. There is no tenderness, lymphadenopathy, or masses. No thyromegaly. Normal carotid upstrokes without bruits. LUNGS: Clear breath sounds bilaterally. No wheezes, or rhonchi. HEART: Normal rate and rhythm. Normal S1 and S2 with a 1/6 systolic ejection murmur at the right upper sternal border. There are no diastolic murmurs, gallops or rubs. VASC: Peripheral pulses +2 bilaterally. EXT: No clubbing, cyanosis or edema. NEURO: Awake, alert, and oriented x3. No focal neurological deficits noted. Laboratory: Hematology Labs: Test 03/18/25 04:32 03/17/25 06:36 03/16/25 09:46 Range/Units White Blood Count 6.2 4.8-10.8 K/uL Red Blood Count 3.04 L 4.50-6.20 MIL/uL Hemoglobin 10.1 L 14.0-18.0 g/dL Hematocrit 29.2 L 42-54 % Mean Corpuscular Volume 96.1 79-99 fL Mean Corpuscular Hemoglobin 33.2 H 27.0-33.0 pg Mean Corpuscular Hemoglobin Concent 34.6 32.0-36.0 g/dL Red Cell Distribution Width 14.2 11.0-15.5 % Platelet Count 152 130-400 K/uL Mean Platelet Volume 10.6 H 7.5-10.5 fL Nucleated Red Blood Cells 0.0 0.0-0.19 % Immature Granulocyte % (Auto) 0.4 0-1 % Neutrophils (%) (Auto) 71.9 40.0-77.0 % Lymphocytes (%) (Auto) 14.8 L 21.0-51.0 % Monocytes (%) (Auto) 11.3 3.0-13.0 % Eosinophils (%) (Auto) 1.0 0.0-8.0 % Basophils (%) (Auto) 0.6 0.0-5.0 % Neutrophils # (Auto) 3.7 1.8-7.7 K/uL Lymphocytes # (Auto) 0.8 L 1.0-4.8 K/uL Monocytes # (Auto) 0.6 0.1-1.0 K/uL Eosinophils # (Auto) 0.05 0.00-0.70 K/uL Basophils # (Auto) 0.03 0.00-0.20 K/uL Absolute Immature Granulocyte (auto 0.02 0-1 K/uL White Cell Morphology Comment See comments Chemistry Labs: Test 03/18/25 05:35 03/18/25 04:32 03/17/25 06:36 03/16/25 09:46 Range/Units Whole Blood Glucose 123 H 70-110 MG/DL Sodium Level 140 136-145 mmol/L Potassium Level 3.0 *L 3.5-5.1 mmol/L Chloride Level 105 101-111 mmol/L Carbon Dioxide Level 28 21-32 mmol/L Blood Urea Nitrogen 15 7-18 mg/dL Creatinine 1.0 0.5-1.3 mg/dL Glomerular Filtration Rate Calc 73 >90 mL/min Random Glucose 118 H 70-105 mg/dL Total Calcium 8.4 L 8.5-10.1 mg/dL Magnesium Level 1.50 L 1.80-2.40 mg/dL Total Bilirubin 0.5 0.2-1.0 mg/dL Aspartate Amino Transf (AST/SGOT) 13 10-37 U/L Alanine Aminotransferase (ALT/SGPT) 20 12-78 U/L Alkaline Phosphatase 71 50-136 U/L Total Protein 5.9 L 6.0-8.3 g/dL Albumin 2.9 L 3.5-5.0 g/dL Iron Level 17 L 65-175 mcg/dL Total Iron Binding Capacity 264 250-450 mcg/dL Percent Iron Saturation 6.4 L 30-44 % Hemoglobin A1c 6.8 H 4.0-6.0 % Estimated Average Glucose (eAG) 148 H 70-126 mg/dL Total Creatine Kinase 50 21-232 U/L Troponin I High Sensitivity 10.8 4-75 ng/L C-Reactive Protein, Quantitative 10.60 H 0.5-3.0 mg/L Procalcitonin 0.09 0.05-0.5 ng/mL Thyroid Stimulating Hormone (TSH) 2.10 0.36-3.74 uIU/mL Diagnostics / Radiology: Impression and Plan: Generalized weakness and confusion in the setting of UTI: E coli urinary tract infection: -patient is awake and alert and has no evidence of orthostatic hypotension this morning. Blood cultures at 12:00 p.m. are no growth. Urine is growing E coli. History of conduction system disease status post remote dual-chamber permanent pacemaker insertion with a [employer] Edora device 07/2021: -interrogation of device demonstrated normal function this morning -cleared for discharge home from a cardiac viewpoint Comorbidities: Essential hypertension Advanced age of 84 years Dementia Frailty Prostate carcinoma status post prior radiation therapy Mild aortic valve stenosis by prior echo Family members requesting palliative care SATYA DONAHUE MD Mar 18, 2025 09:43
--- NOTE | 2025-03-18 10:33 | PN ---
[facility] PROGRESS NOTE Date of Service: Mar 18, 2025 Time of Service: 10:27 SUBJECTIVE: 84-year-old male with past medical history of hypertension, BPH, diabetes mellitus type 2, Alzheimer's disease, , history of pacemaker placement who presented to the hospital March 16, 2025 secondary to syncopal episode. Patient's history obtained from patient's son and from patient's daughter p resent at bedside. According to the family while patient was walking in the kitchen he was in normal state of health. He was thereafter noted to have episode where he was having upper extremity shaking episode. During the episodes patient was conscious but thereafter daughter not certain if he lost consciousness. Per daughter he had bowel incontinence and urinary incontinence. Denied any tongue bites, lower extremity shaking. Denied any previous history of seizures in the past. Denied any fever, chills, chest pain, abdominal pain, nausea, vomiting, dysuria, hematuria. Per son the patient had a very similar episode around 3-4 years ago. At that time he was diagnosed with urinary infection. Per patient's daughter patient was planning to have possibly his pacemaker lead changed in the future. Patient is followed by Dr. Carrillo as outpatient Labs were notable for white count of 8.3, hemoglobin was 10.6, MCV was 99.1, platelet count was 165 K, sodium was 140, potassium was 4.0, creatinine was 1.2, blood glucose was 167 UA done in the ER, cloudy appearance, 2+ nitrite, 250 leukocyte esterase, 11-25 WBC per high-power field Patient underwent a chest x-ray no acute pulmonary infiltrate. CT head was negative for any intracranial bleed 03/17 patient admitted to the medical floor, BP 90/47, afebrile, saturating normal on room air, hemoglobin 10.1, hematocrit 29.9, WBC 5.2, platelet count of 150, potassium 3.5. TSH 2.1. Results of urine culture greater than [id number] CFU, identification and susceptibility pending. Patient on Rocephin 2 g IV daily. Home medications reviewed and reconciled, we will order stool occult blood, iron level panel, if stool occult blood positive we will request GI consultation. Patient will be monitored on telemetry. Request echocardiogram. Request pacemaker interrogation. Request Cardiology consultation. In reference to possible seizure. The patient and family was informed regarding no in-house neurologist available. Family declined transferred to higher level of care. They are agreeable to staying in the hospital. We will obtain a tele neurology consultation to rule out seizure. Concern if patient had seizure versus rigors in setting of underlying UTI. PT consulted, follow input and recommendation. During my visit the patient is resting comfortably in bed, not agitated, not combative, still confused. at bedside, updated, all questions answered. Advanced directive discussed, patient is DNR/DNI. We will also add multivitamin IV at 50 mL/hours, total of 1 L. 03/18 patient with a history of dementia, admitted for suspected UTI, Syncope likely in setting of UTI and possible seizure versus chills secondary to UTI. Per the , the patient gets like this when he gets UTI. Started on empiric IV antibiotics and multivitamin IV. CT head no acute findings. Evaluated by tele neurologist, possible first time event provoked by UTI, would not recommend AEDs at this time unless any abnormalities in following workup. Recommended brain MRI with and without contrast as well as EEG. Blood pressure 135/62, afebrile, saturating normal on room air, potassium 3.0, magnesium 1.5, results of urine culture positive for E coli sensitive to multiple antibiotics, currently on Rocephin 1 g IV daily. During visit patient comfortable, still not back to his mental baseline status, sitter at bedside. not present in the room. REVIEW OF SYSTEMS CONSTITUTIONAL: Denies fevers, chills, or night sweats. No unintentional weight loss reported. NEUROLOGICAL: Denies headache, amaurosis fugax, motor weakness, sensory deficit, vertigo/spinning sensation, gait abnormalities, or tremors. Positive for syncope ENT: No hearing loss, otalgia, otorrhea, rhinitis, rhinorrhea, hoarseness, or sore throat. CARDIOVASCULAR: Denies any exertional angina, dyspnea on exertion, orthopnea, paroxysmal nocturnal dyspnea, palpitations, life-threatening arrhythmias, claudication. PULMONARY: Denies any shortness of breath, cough, phlegm/sputum, hemoptysis, pleuritic chest pain. GASTROINTESTINAL: Denies any type of dysphagia to either liquids or solids. Denies nausea, vomiting, pyrosis, early satiety, abdominal pain, diarrhea, constipation, or changes in stool consistency or caliber. Denies coffee-ground emesis, hematemesis, hematochezia, or melanotic stools. GENITOURINARY: Denies frequency, urgency, nocturia, hematuria or incontinence (Storage/Irritative symptoms.) Low urinary stream, straining to void, urinary intermittency or hesitancy, splitting of the voiding stream, terminal dribbling. ENDOCRINOLOGIC: Denies polyuria, polydipsia, polyphagia or heat/cold intolerances. HEMATOLOGIC: Denies thrombophilia/previous clots, or coagulopathy/bleeding disorders. ONCOLOGIC: Denies personal history of malignancy. DERMATOLOGIC: Denies rashes or pruritus. PSYCHIATRIC: Denies any suicidal or homicidal ideation. Denies hallucinations. PHYSICAL EXAM GENERAL APPEARANCE: Resting comfortably in bed, not agitated, not combative, still confused (dementia) Patient is very hard of hearing NEUROLOGICAL: Cranial nerves II-XII grossly intact. Motor is 5/5 in bilateral upper and lower extremities proximal to distal. No sensory deficits. HEENT: Face is symmetric. Pupils are equal and reactive. Extraocular movements are intact. NECK: Supple. No JVD. No thyromegaly. No submental, submandibular, pre- /postauricular, occipital or supraclavicular lymphadenopathy. CHEST: Normal chest expansion. No Telemetry. LUNGS: Absence of any rales, rhonchi or any wheezing. CARDIOVASCULAR: Regular. S1 and S2 normal. No appreciable rubs, murmurs or gallops. ABDOMEN: Soft, nontender, and nondistended. There is no rebound, voluntary guarding, or rigidity. EXTREMITIES: Non-edematous and not cyanotic. No clubbing. Good capillary refill. SKIN: No skin breakdown. Vital Signs (last 8hr) Date Time Temp Pulse Resp B/P (MAP) Pulse Ox O2 Delivery O2 Flow Rate FiO2 03/18/25 08:52 63 16 135/62 03/18/25 08:50 68 16 137/70 03/18/25 08:05 74 16 121/60 03/18/25 08:00 98.1 75 20 173/90 98 Room Air 21 03/18/25 04:00 97.9 77 18 177/88 97 Room Air 03/18/25 02:49 99 Room Air* 0 21 LABS: Laboratory: Test 03/18/25 05:35 03/18/25 04:32 03/17/25 06:36 03/16/25 12:45 Range/Units Whole Blood Glucose 123 H 70-110 MG/DL White Blood Count 6.2 4.8-10.8 K/uL Red Blood Count 3.04 L 4.50-6.20 MIL/uL Hemoglobin 10.1 L 14.0-18.0 g/dL Hematocrit 29.2 L 42-54 % Mean Corpuscular Volume 96.1 79-99 fL Mean Corpuscular Hemoglobin 33.2 H 27.0-33.0 pg Mean Corpuscular Hemoglobin Concent 34.6 32.0-36.0 g/dL Red Cell Distribution Width 14.2 11.0-15.5 % Platelet Count 152 130-400 K/uL Mean Platelet Volume 10.6 H 7.5-10.5 fL Nucleated Red Blood Cells 0.0 0.0-0.19 % Sodium Level 140 136-145 mmol/L Potassium Level 3.0 *L 3.5-5.1 mmol/L Chloride Level 105 101-111 mmol/L Carbon Dioxide Level 28 21-32 mmol/L Blood Urea Nitrogen 15 7-18 mg/dL Creatinine 1.0 0.5-1.3 mg/dL Glomerular Filtration Rate Calc 73 >90 mL/min Random Glucose 118 H 70-105 mg/dL Total Calcium 8.4 L 8.5-10.1 mg/dL Magnesium Level 1.50 L 1.80-2.40 mg/dL Total Bilirubin 0.5 0.2-1.0 mg/dL Aspartate Amino Transf (AST/SGOT) 13 10-37 U/L Alanine Aminotransferase (ALT/SGPT) 20 12-78 U/L Alkaline Phosphatase 71 50-136 U/L Total Protein 5.9 L 6.0-8.3 g/dL Albumin 2.9 L 3.5-5.0 g/dL Immature Granulocyte % (Auto) 0.4 0-1 % Neutrophils (%) (Auto) 71.9 40.0-77.0 % Lymphocytes (%) (Auto) 14.8 L 21.0-51.0 % Monocytes (%) (Auto) 11.3 3.0-13.0 % Eosinophils (%) (Auto) 1.0 0.0-8.0 % Basophils (%) (Auto) 0.6 0.0-5.0 % Neutrophils # (Auto) 3.7 1.8-7.7 K/uL Lymphocytes # (Auto) 0.8 L 1.0-4.8 K/uL Monocytes # (Auto) 0.6 0.1-1.0 K/uL Eosinophils # (Auto) 0.05 0.00-0.70 K/uL Basophils # (Auto) 0.03 0.00-0.20 K/uL Absolute Immature Granulocyte (auto 0.02 0-1 K/uL Iron Level 17 L 65-175 mcg/dL Total Iron Binding Capacity 264 250-450 mcg/dL Percent Iron Saturation 6.4 L 30-44 % Urine Color LIGHT-YELLOW YELLOW Urine Appearance CLOUDY H CLEAR Urine pH 6.0 5.0-8.0 Urine Specific [place] 1.016 1.001-1.031 Urine Protein 20 H NEGATIVE mg/dL Urine Glucose (UA) 70 H NEGATIVE mg/dL Urine Ketones 5 H NEGATIVE mg/dL Urine Occult Blood NEGATIVE NEGATIVE Urine Nitrate 2+ H NEGATIVE Urine Bilirubin NEGATIVE NEGATIVE mg/dL Urine Urobilinogen 0.2 0.2-1.0 mg/dL Urine Leukocyte Esterase 250 H NEGATIVE Cecelia/uL Urine RBC 0-1 0-1 /HPF Urine WBC 11-25 H 0-1 /HPF Urine Squamous Epithelial Cells 0-2 0-2 /HPF Urine Non-Squamous Epithelial Cells 0-2 /HPF Urine Bacteria Many H None Seen /HPF Current Medications Medications (Trade) Dose Ordered Sig/Dorian Route PRN Reason Start Time Stop Time Status Last Admin Dose Admin Acetaminophen (TYLenol 500MG TAB) 500 mg Q6H PRN PO MILD PAIN (1-3) 03/16/25 14:00 04/15/25 13:59 Aspirin (Aspirin 81mg Ec Tab) 81 mg DAILY PO 03/17/25 09:00 04/16/25 08:59 03/18/25 09:07 81 MG Ceftriaxone Sodium (Rocephin 2gm Inj) 2 gm Q24H IVPB 03/17/25 14:00 03/27/25 13:59 03/17/25 14:25 2 GM Dextrose (D50w) 50 ml AD PRN IV HYPOGLYCEMIA PROTOCOL 03/16/25 14:30 04/15/25 14:29 Donepezil HCl (ARIcept 5MG TAB) 10 mg HS PO 03/17/25 21:00 04/16/25 20:59 03/17/25 21:14 10 MG Famotidine (Pepcid 20mg Vial) 20 mg HS IV 03/16/25 21:00 04/15/25 20:59 03/17/25 21:14 20 MG Ferrous Sulfate (Ferrous Sulfate) 325 mg DAILY PO 03/18/25 09:00 04/17/25 08:59 03/18/25 09:07 325 MG Glucagon (Glucagon 1mg Kit) 1 mg AD PRN IM HYPOGLYCEMIA PROTOCOL 03/16/25 14:30 04/15/25 14:29 Hydralazine HCl (APRESOLine 20MG INJ) 10 mg Q6H PRN IV ADMINISTER FOR SBP > 180 03/16/25 14:00 04/15/25 13:59 Insulin Human Regular (humuLIN R 100 UNIT/ML 3ML) INSULIN SLIDING SCAL... ACHS SQ 03/16/25 16:30 04/15/25 16:29 03/17/25 21:31 2 UNIT Magnesium Sulfate 50 ml @ 0 mls/hr PROTOCOL PRN IV MAGNESIUM PROTOCOL 03/18/25 05:30 04/17/25 05:29 03/18/25 05:49 20 MLS/HR Piperacillin Sod/ Tazobactam Sod (Zosyn 3.375gm+NS 50ml) 3.375 gm Q8H IVPB 03/16/25 14:00 03/16/25 13:56 DC Potassium Chloride 100 ml @ 100 mls/hr AD PRN IV POTASSIUM PROTOCOL 03/18/25 05:30 04/17/25 05:29 Potassium Chloride (K-Dur/Klor-Con 20meq) 20 meq AD PRN PO POTASSIUM PROTOCOL 03/18/25 05:30 04/17/25 05:29 03/18/25 09:08 20 MEQ Potassium Chloride (KCl 10% Elixir 20meq/15ml) 20 meq AD PRN PO POTASSIUM PROTOCOL 03/18/25 05:30 04/17/25 05:29 03/18/25 05:36 20 MEQ Sodium Chloride 1,000 ml @ 75 mls/hr [id number] IV 03/16/25 14:00 04/15/25 13:59 03/18/25 05:57 75 MLS/HR Sodium Chloride (NS 50ml) 50 ml AD IV 03/16/25 14:00 03/16/25 15:34 DC Tamsulosin HCl (FloMAX) 0.4 mg NOON PO 03/17/25 12:00 04/16/25 11:59 03/17/25 14:25 0.4 MG DIAGNOSTICS / RADIOLOGY: [ ] ASSESSMENT: Acute metabolic encephalopathy Suspected UTI POA Syncope POA likely in setting of UTI Possible seizure versus trigger secondary to UTI History of pacemaker placement Hypertension Hyperlipidemia Advanced age History of BPH PLAN: patient with a history of dementia, admitted for suspected UTI, Syncope likely in setting of UTI and possible seizure versus chills secondary to UTI. Per the , the patient gets like this when he gets UTI. Started on empiric IV antibiotics and multivitamin IV. CT head no acute findings. Evaluated by tele neurologist, possible first time event provoked by UTI, would not recommend AEDs at this time unless any abnormalities in following workup. Recommended brain MRI with and without contrast as well as EEG. Blood pressure 135/62, afebrile, saturating normal on room air, potassium 3.0, magnesium 1.5, results of urine culture positive for E coli sensitive to multiple antibiotics, currently on Rocephin 1 g IV daily. NEURO: Minimize central acting medications as possible. Fall Precautions. Well lighted room through the day and minimize interruptions through the night to prevent acute delirium. PULMONARY: Supplemental 02 as needed BiPAP as necessary, for respiratory distress Titrate Fio2 to keep Spo2 > or = 90% DuoNebs and CPT as needed IS hourly while awake for pulmonary hygiene prn Out of bed to chair as tolerated Maintain aspiration precautions at all times CARDIOVASCULAR: Follow hemodynamics. Vital signs per facility protocol GI & NUTRITION: Continue nutritional support Aspirations precautions Prokinetic agents and laxatives as needed KIDNEYS & ELECTROLYTES: Strict monitoring of intake and output Daily weights Avoid nephrotoxic agents Monitor electrolytes and replace as needed Goal urine output of 30mL/hr or 0.5mL/kg/hr Medications to be dosed according to renal function. Avoid contrast if possible ENDOCRINE: Maintain blood glucose between 100-180 at all times. Insulin sliding scale for blood glucose management Hypoglycemia and hyperglycemia protocol in place INFECTIOUS DISEASE: Trend temperature, WBC and procalcitonin level Follow cultures, deescalate antibiotics as soon as possible. Panculture if new onset fever HEMATOLOGY & COAGULATION: Monitor H&H. Keep Hgb > 7 Transfuse 1 unit of PRBC for Hgb < 7 Transfuse 1 pack of platelets of platelets < 20, 000 Watch for any signs and symptoms of bleeding SKIN: Pressure ulcer prevention per facility protocol Specialty mattress as needed ORTHO/REHAB Continue PT/OT PRN: MEDICATIONS Tylenol 650 mg po every 4 hrs for fever zofran 4 mg IV every 6 hrs for n/v Hydralazine 5 mg IV every 4 hrs systolic pressure > 160 bowel regiment: lactulose 20 gm PO BID PRN constipation Supportive measures: Continue GI and DVT prophylaxis Disposition: Pending improvement in clinical condition All questions answered time spent: > 35 min ANA MIKE MD Mar 18, 2025 10:33
[2025-03-18] MEDS ORDERED: MAGNESIUM 2GM PREMIX 50ML 50 ML IV SCH (11:00)
[2025-03-18] MEDS ORDERED: LOSA25TA41 PO (12:31)
--- NOTE | 2025-03-18 12:33 | DS ---
Discharge Summary Hospital Course Summary: 84-year-old male with past medical history of hypertension, BPH, diabetes mellitus type 2, Alzheimer's disease, , history of pacemaker placement who presented to the hospital March 16, 2025 secondary to syncopal episode. Patient's history obtained from patient's son and from patient's daughter present at bedside. According to the family while patient was walking in the kitchen he was in normal state of health. He was thereafter noted to have episode where he was having upper extremity shaking episode. During the episodes patient was conscious but thereafter daughter not certain if he lost consciousness. Per daughter he had bowel incontinence and urinary incontinence. Denied any tongue bites, lower extremity shaking. Denied any previous history of seizures in the past. Denied any fever, chills, chest pain, abdominal pain, nausea, vomiting, dysuria, hematuria. Per son the patient had a very similar episode around 3-4 years ago. At that time he was diagnosed with urinary infection. Per patient's daughter patient was planning to have possibly his pacemaker lead changed in the future. Patient is followed by Dr. Carrillo as outpatient Labs were notable for white count of 8.3, hemoglobin was 10.6, MCV was 99.1, platelet count was 165 K, sodium was 140, potassium was 4.0, creatinine was 1.2, blood glucose was 167 UA done in the ER, cloudy appearance, 2+ nitrite, 250 leukocyte esterase, 11-25 WBC per high-power field Patient underwent a chest x-ray no acute pulmonary infiltrate. CT head was negative for any intracranial bleed 03/17 patient admitted to the medical floor, BP 90/47, afebrile, saturating normal on room air, hemoglobin 10.1, hematocrit 29.9, WBC 5.2, platelet count of 150, potassium 3.5. TSH 2.1. Results of urine culture greater than [id number] CFU, identification and susceptibility pending. Patient on Rocephin 2 g IV daily. Home medications reviewed and reconciled, we will order stool occult blood, iron level panel, if stool occult blood positive we will request GI consultation. Patient will be monitored on telemetry. Request echocardiogram. Request pacemaker interrogation. Request Cardiology consultation. In reference to possible seizure. The patient and family was informed regarding no in-house neurologist available. Family declined transferred to higher level of care. They are agreeable to staying in the hospital. We will obtain a tele neurology consultation to rule out seizure. Concern if patient had seizure versus rigors in setting of underlying UTI. PT consulted, follow input and recommendation. During my visit the patient is resting comfortably in bed, not agitated, not combative, still confused. at bedside, updated, all questions answered. Advanced directive discussed, patient is DNR/DNI. We will also add multivitamin IV at 50 mL/hours, total of 1 L. 03/18 patient with a history of dementia, admitted for suspected UTI, Syncope likely in setting of UTI and possible seizure versus chills secondary to UTI. Per the , the patient gets like this when he gets UTI. Started on empiric IV antibiotics and multivitamin IV. CT head no acute findings. Evaluated by tele neurologist, possible first time event provoked by UTI, would not recommend AEDs at this time unless any abnormalities in following workup. Recommended brain MRI with and without contrast as well as EEG. Blood pressure 135/62, a febrile, saturating normal on room air, potassium 3.0, magnesium 1.5, results of urine culture positive for E coli sensitive to multiple antibiotics, currently on Rocephin 1 g IV daily. During visit patient comfortable, still not back to his mental baseline status, sitter at bedside. not present in the room. Discussed with the RN today, does not want to pursue further diagnostic tests, we will like to take the patient home. We will replace electrolytes and recheck, he is stable okay for the patient to be discharged home. Dose of losartan has been adjusted from 100 mg p.o. daily to 25 mg p.o. daily, prescription sent to the pharmacy, as well as cefdinir 300 mg p.o. daily for seven days. Assessment/Plan: Final diagnosis Acute metabolic encephalopathy Suspected UTI POA Syncope POA likely in setting of UTI Possible seizure versus trigger secondary to UTI History of pacemaker placement Hypertension Hyperlipidemia Advanced age History of BPH Home Medications: Reported Medications Losartan Potassium (Losartan Potassium) 100 Mg Tablet, 1 TAB PO DAILY for 30 Days, #30 TAB 0 Refills 03/17/25 Ferrous Sulfate (Ferosul) 325 Mg (65 Mg Iron) Tablet, 1 TAB PO DAILY 03/16/25 Ergocalciferol (Vitamin D2) (Vitamin D2) 1,250 Mcg (05896 Unit) Capsule, 1 CAP PO QWEEK 03/16/25 Tamsulosin HCl (Flomax) 0.4 Mg Cap.er.24h, 1 CAP PO NOON 03/16/25 Pioglitazone HCl (Pioglitazone HCl) 30 Mg Tablet, 1 TAB PO DAILY 03/16/25 Metformin HCl (Metformin HCl) 1,000 Mg Tablet, 1 TAB PO BID 03/16/25 Aspirin (Aspirin EC) 81 Mg Tablet.dr, 1 TAB PO DAILY 03/16/25 Donepezil HCl (Donepezil HCl) 10 Mg Tablet, 1 TAB PO HS 03/16/25 Discontinued Reported Medications Cholecalciferol (Vitamin D3) 50,000 Units Cap, 03239 UNITS PO AD, CAP 08/15/21 Brimonidine Tartrate/Timolol (Combigan Eye Drops) 5 Ml Drops, 5 ML OP BID, DROP 08/14/21 Atorvastatin Calcium (Atorvastatin Calcium) 20 Mg Tablet, 20 MG PO HS, TAB 08/14/21 Aspirin (Aspirin) 81 Mg Tab.chew, 81 MG PO AM, TAB.CHEW 08/14/21 Pioglitazone HCl (Pioglitazone HCl) 15 Mg Tablet, 15 MG PO AM, TAB 08/14/21 Losartan Potassium (Losartan Potassium) 100 Mg Tablet, 100 MG PO AM, TAB 08/14/21 Empagliflozin (Jardiance) 25 Mg Tablet, 25 MG PO AM, TAB 08/14/21 Discontinued Scripts Cephalexin Monohydrate (Keflex) 500 Mg Cap, 500 MG PO QID for 10 Days, #40 CAP Prov:JOE PINTO MD 06/05/22 Time spent arranging discharge: 31-60 minutes ANA MIKE MD Mar 18, 2025 12:33
[2025-03-18] MEDS: PoTASSium chloRIDE 20MEQ ER 20 MEQ ERTAB PO ONE (12:36)
[2025-03-18] MEDS: PoTASSium chloRIDE 20MEQ/100ML 100 ML IV PRN (12:36)
[2025-03-18] MEDS: PoTASSium chloRIDE 20MEQ/100ML 100 ML IV ONE (12:44)
[2025-03-18] MEDS ORDERED: CEFD300C3 PO (14:11)
[2025-03-18 16:31] LABS: MAGNESIUM 2.2 mg/dL (1.80-2.40); POTASSIUM 3.9 mmol/L (3.5-5.1)
--- NOTE | 2025-03-18 16:45 | NUR ---
Repete K level is 3.9 and Mag is 2.6, reported to Dr Melchor, will proceed with discharge
--- NOTE | 2025-03-18 17:00 | NUR ---
Discharge instructions given and explained to the patient. PIV is removed. All belongings are packed by the pt's . He is taken to his private vehicle by wheelchair where he then departed with family.
--- NOTE | 2025-03-19 06:14 | PRN ---
ELECTROENCEPHALOGRAM REPORT NEUROLOGIST: Dr Raya DATE OF STUDY: 02/15/2022 INDICATION FOR STUDY: This is a 84-year-old with male change in mental status. TECHNIQUE: This a digital acquisition electroencephalogram use international 10- 20 system on a bipolar and referential montages 17 changes were used for this seizure recordin for EEG and 1 for EKG. The patient to be on a drowsy state. Hyperventilation was not performed the study. Photic stimulation was performed as activating procedure. FINDINGS: The patient had a low voltage 10 mV, up to 5 hertz delta activity per cycle. No [id number] discharges or any lateralizing abnormalities were seen. Photic stimulation did not produce any abnormalities or driving response. Frequent EMG artifacts were seen. IMPRESSION: Abnormal EEG because of generalized slowing in the background rhythm indicative of diffuse cortical dysfunction of moderate to severe degree. This may be consistent with severe anoxic encephalopathy, severe metabolic, ischemic, or infective in origin or severe cortical atrophy and dementia. No epileptiform discharges or any other paroxysmal activities or focal abnormalities were seen. Clinical correlation is recommended. ROCHELLE VALENCIA MD Mar 19, 2025 06:14
[2025-03-19] MEDS ORDERED: LoSARTan 25 MG TABLET PO SCH (09:00)
== END 2025-03-18 17:00 | disposition home or self-care (01) | DRG 689 ==
LOC: EDH 09:22 → EDHIP 13:48 → 4DH 21:02
PROVIDERS: ADMIT Internal Medicine; ATTEND Internal Medicine
PROC: 4B02XSZ Measurement of Cardiac Pacemaker, External Approach (ICD-10-PCS; principal; 2025-03-17)
PROC: 4A00X4Z Measurement of Central Nervous Electrical Activity, External Approach (ICD-10-PCS; 2025-03-18)
DX: N39.0 Urinary tract infection, site not specified (principal); G93.41 Metabolic encephalopathy; I45.2 Bifascicular block; I10 Essential (primary) hypertension; N40.0 Benign prostatic hyperplasia without lower urinary tract symptoms; I49.5 Sick sinus syndrome; Z20.822 Contact with and (suspected) exposure to COVID-19; C61 Malignant neoplasm of prostate; I08.3 Combined rheumatic disorders of mitral, aortic and tricuspid valves; D53.9 Nutritional anemia, unspecified; E11.9 Type 2 diabetes mellitus without complications; E78.00 Pure hypercholesterolemia, unspecified; E86.0 Dehydration; F02.80 Dementia in other diseases classified elsewhere, unspecified severity, without behavioral disturbance, psychotic disturbance, mood disturbance, and anxiety; G30.9 Alzheimer's disease, unspecified; I27.20 Pulmonary hypertension, unspecified; Z92.3 Personal history of irradiation; Z95.0 Presence of cardiac pacemaker; B96.20 Unspecified Escherichia coli [E. coli] as the cause of diseases classified elsewhere
CPT/HCPCS: 36415; 70450; 71045; 80048; 80053; 81001; 82550; 82948; 83036; 83540; 83550; 83735; 84132; 84145; 84443; 84484; 85025; 85027; 86140; 87040; 87086; 87186; 93005; 95819; 99285; G0378; J0696; J1200; J1815; J3411; J3475; J3480; J3490; J7030